=== PATIENT | female | born 1945 | race Caucasian/White ===

== ENCOUNTER → 2024-06-25 | Outpatient (CLI) | payer MEDICARE, SELFPAY ==
--- NOTE | 2024-06-25 13:23 | XR_ITS ---
Examination: AP lateral chest 2 views TECHNIQUE: Upright AP lateral chest 2 views Exam date and time: 01/24/2024 1340 hours INDICATIONS: Diagnosis atelectasis 2 weeks. FINDINGS: Mild prominence left ventricle Moderate hyperexpansion Severe osteopenia Chronic osteoporotic compressions T11 T5 Probable scarring in the lingular segment but clinical correlation advised IMPRESSION: Probable scarring lingular segment but clinical correlation advised, suggest follow-up chest imaging is clinically warranted
== END | disposition home or self-care (01) ==
LOC: CDIM 13:16
PROVIDERS: PCP Family Medicine; Referring Provider Nurse Practitioner Family; Visit Provider Nurse Practitioner Family
DX: R91.8 Other nonspecific abnormal finding of lung field (principal)
CPT/HCPCS: 71046

== ENCOUNTER 2025-05-31 14:48 | Inpatient (IN) | payer MEDICARE, SELFPAY ==
[2025-05-31] VITALS (10 sets, daily range): BP systolic 81–140; BP diastolic 50–100; PULSE 92–108; RESP 20–34; TEMP 36.8–38.6; O2SAT 91–97; BMI 14.9
--- NOTE | 2025-05-31 14:53 | XR_ITS ---
Examination: CT brain head without contrast. 2-D sagittal coronal reconstructions Date and time of exam: May 31, 2025, 1500 hours INDICATIONS: Stroke alert, onset lethargy generalized weakness today CTDI: vol (mGy): 48 DLP: (mGycm): 1033 Technique: Multiple CT axial sections of the brain have been obtained, 5 mm slice thickness. Contrast has not been administered. 2-D sagittal, coronal reconstructions have been obtained Low dose protocols were performed. One or more of the following dose reduction techniques were used; automated exposure control, adjustment of the mA and/or KV according to patient size, use of iterative reconstruction technique. Findings: No significant ventricular enlargement. Encephalomalacia left frontal lobe Intra-axial or extra-axial hemorrhage density is not seen. No mass effect or midline shift Basal cisterns are not remarkable. Fourth ventricle is midline. Cranial vault intact. Impression: Negative for acute hemorrhage, mass effect or midline shift
--- NOTE | 2025-05-31 14:53 | XR_ITS ---
EXAMINATION: AP chest single view TECHNIQUE: Portable AP sitting chest single view Date and time: May 31, 2025: 1524 hours INDICATIONS: Stroke protocol FINDINGS: Mild prominence left ventricle Breast density is prominent Prominent osteopenia IMPRESSION: Recommend follow-up lateral chest view to best exclude pneumonia in the lung tavarez
--- NOTE | 2025-05-31 14:53 | EKG_ITS ---
[facility] Test Date: 2025-05-31 Pat Name: YANELY MARTINEZ Department: Room: - Gender: Female [employer]: : 1945 Requested By: Belkis Cedeno Order Number: [id number] Reading MD: Belkis Cedeno Measurements Intervals [place] Rate: 105 P: 193 HI: 128 QRS: -69 QRSD: 138 T: 95 QT: 417 QTc: 552 Interpretive Statements SINUS TACHYCARDIA INTRAVENTRICULAR CONDUCTION DELAY [130+ ms QRS DURATION] LEFT VENTRICULAR HYPERTROPHY AND ST-T CHANGE [VOLTAGE CRITERIA PLUS ST/T ABNORMALITY] INFERIOR MYOCARDIAL INFARCTION , POSSIBLY ACUTE [40+ ms Q WAVE AND/OR ST/T ABNORMALITY IN II/aVF] POSSIBLE ANTEROSEPTAL MYOCARDIAL INFARCTION , OF INDETERMINATE AGE [30 ms Q WAVE IN V1-V4] ACUTE MS No previous ECG available for comparison /store/S0/[id number].pdf
--- NOTE | 2025-05-31 14:53 | XR_ITS ---
Examination: CTA carotids with intravenous contrast CTA brain, head with intravenous contrast. 2-D sagittal, coronal reconstructions. 3-D reconstructions. Exam date and time: May 31, 2025, 1303 hours INDICATIONS: Stroke alert, onset focal neurologic deficit lethargy today CTDI: vol (mGy) 32.8 DLP: (mGycm) 450 Technique: Multiple CTA axial brain, head carotid images post intravenous contrast injection 752 cc, Isovue-370. 2-D sagittal, coronal reconstructions. 3-D reconstructions, 3-D post processing including vascular maximum intensity projection images. Low dose protocols were performed. One or more of the following dose reduction techniques were used; automated exposure control, adjustment of the mA and/or KV according to patient size, use of iterative reconstruction technique. Findings: Soft foci of parenchymal disease in the lung apices No significant common carotid carotid bifurcation or internal carotid artery stenoses Atretic right vertebral artery which is grossly patent Intracranial vertebral arteries basilar artery posterior cerebral branches fill without occlusions Juxtasellar supraclinoid portions internal carotid arteries M1 segments middle cerebral arteries middle cerebral artery trifurcation vessels and anterior cerebral arteries fill with no large vessel occlusions IMPRESSION: No critical neck arterial stenoses No cerebral large vessel arterial occlusions or thrombus
[2025-05-31 15:15] LABS: Basophils # (Auto) 0.0 Thou/mm3 (0.0-0.2); Basophils % (Auto) 0 % (0-2.5); Eosinophils # (Auto) 0.0 Thou/mm3 (0.0-0.5); Eosinophils % (Auto) 0 % (0-10); Hematocrit 41.2 % (36.0-46.0); Hemoglobin 13.8 g/dL (12.0-16.0); Immature Granulocytes Auto 0.07 Thou/mm3 (0.00-0.00); Lymphocytes # (Auto) 0.6 Thou/mm3 (1.0-4.8); Lymphocytes % (Auto) 4 % (10-50); Mean Corpuscular HGB Conc 33.5 g/dl (31.0-37.0); Mean Corpuscular Hemoglobin 30.8 pg (25.0-35.0); Mean Corpuscular Volume 92 fL (80-100); Monocytes # (Auto) 1.7 Thou/mm3 (0.0-0.8); Monocytes % (Auto) 12 % (0-12); Neutrophils # (Auto) 12.2 Thou/mm3 (1.8-7.7); Neutrophils % (Auto) 83 % (37-80); Nucleated Red Blood Cell # 0.00 Thou/mm3 (0.00-0.00); Nucleated Red Blood Cell % 0 /100 WBC (0); Platelet Count 422 Thou/mm3 (140-440); RDW Standard Deviation 49.9 fL (36.4-46.3); Red Blood Count 4.48 Miln/mm3 (4.00-5.20); White Blood Count 14.6 Thou/mm3 (3.6-11.0)
[2025-05-31 15:24] LABS: Base Excess -3 (-3-3); HCO3 21 mEq/L (20-26); Inspired Oxygen, FIO2 21 %; O2 Saturation 96 % (91-98); PCO2 36 mmHg (32.0-48.0); PO2 80 mmHg (83-108); pH, Arterial 7.38 (7.35-7.45)
[2025-05-31 15:29] LABS: Allen Test Performed/OK; Puncture Site Right Radial
[2025-05-31 15:29] LABS: INR 1.0 (0.9-1.3); Partial Thromboplastin Time 25.1 Seconds (22.0-36.0); Prothrombin Time 10.4 Seconds (9.0-12.2)
[2025-05-31 15:34] LABS: B-Type Natriuretic Peptide 1860 pg/mL (0-100)
--- NOTE | 2025-05-31 15:34 | EDNOTE_ITS ---
<Statement entered by Belkis William MD - 05/31/25 17:57> As co-signing physician, I was present and available for consult prn. I concur with the plan and care as documented by the midlevel provider. Altered Mental Status RME/HPI General Chief Complaint: Altered Mental Status Stated Complaint: STROKE ALERT Time Seen by Provider: 05/31/25 14:53 Arrival date/time: 05/31/25 14:48 RME / HPI RME / HPI narrative: 79 year old female with history of CVA, TIA, seizures, atherosclerotic heart disease, hypertension, diabetes, hyperlipidemia, depression presents to the ED BIBA from [facility] for evaluation of altered mental status beginning after her shower at ~ 11AM today. Per medics, [place] staff reported the patient appeared to be at her baseline health, GCS of 13/14. State after the shower noted patient was much less responsive and lethargic. Prehospital BS 335. Related Data Allergies Allergy/AdvReac Type Severity Reaction Status Date / Time No Known Allergies Allergy Verified 05/31/25 16:38 Review of Systems Review of Systems ROS Unobtainable: unobtainable due to mental status Past Medical History Past Medical History NEUROLOGIC: Positive Cerebrovascular Accident and Dementia CARDIAC: Positive Congestive Heart Failure and Hypertension REPRODUCTIVE: Positive Breast Cancer (BILATERAL) ENDOCRINE: Positive Diabetes Mellitus Type 2 OTHER HISTORY: Positive Breast Cancer (BILATERAL) Surgical History SURGICAL: Positive Joint Replacement (RIGHT WRIST/HAND), of Shoulder Sx and Hip Sx Social History SMOKING STATUS: Unknown if ever smoked ED Exam Narrative Physical exam: GENERAL APPEARANCE: Patient arrived awake, not interactive, mouth open HEENT: Normocephalic, atraumatic; pupils equal, round, reactive to light; EOMI; mucous membranes pink, moist; oropharynx clear NECK: Supple LUNGS: CTABL; no wheezes, no rales, no rhonchi HEART: Regular rate, regular rhythm; normal S1, S2; no murmurs ABDOMEN: non distended; normal BS; soft, no tenderness, no guarding, no rebound; no masses, no organomegaly, no hernia EXTREMITIES: atraumatic; no edema NEUROLOGIC: Awake, not interactive PSYCHIATRIC: appropriate mood and affect SKIN: warm, dry, pale; no rashes Course Course Course Narrative: Stroke alert called overhead with 3 minute ETA. 1448: Patient evaluated in ED ambulance bay be myself and Teleneurologist Dr. Aguirre. Sent to CT. 1519: I spoke with teleneurologist Dr. Aguirre. States patient is not a TNK candidate. No acute stroke. 1547: Sepsis alert initiated. Temperature 101.4F 1735: I spoke with hospitalist team A for admission. Quality Measures Suspected type of Stroke: Non Acute Last known well (date): 05/31/25 Last known well (time): 11:00 Tenecteplase given: Reason(s) TPA not given: Stroke severity too mild (non-disabling) not given stroke and Current suspected stage: sepsis Possible source: pulmonary Blood cultures ordered: completed in ED Antibiotic ordered: Yes sepsis Orders Category Date Time Status Bedside Blood Glucose NOW Care 05/31/25 14:53 Active Open Claims Representative NOW Care 05/31/25 14:53 Active Continuous Pulse Oximetry NOW Care 05/31/25 14:53 Completed EKG (ED ONLY) *Do not use* NOW Care 05/31/25 14:53 Completed In and Out Catheter NEEDED Care 05/31/25 14:53 Active Insert IV NOW Care 05/31/25 14:53 Active NIH Stroke Scale now Care 05/31/25 14:53 Active NPO NOW Care 05/31/25 14:53 Active Nurse Swallow Screen x1 Care 05/31/25 14:53 Active Consult to Neurology / Tele-Neurology Routine Cons 05/31/25 14:[address] angio stroke protocol Stat Exams 05/31/25 14:[address] stroke protocol Stat Exams 05/31/25 14:53 Completed EKG (ED Only) Stat Exams 05/31/25 14:53 Draft XR chest 1V portable Stat Exams 05/31/25 14:53 Completed Alcohol, Blood Medical Stat Lab 05/31/25 15:00 Completed Arterial Blood Gas Stat Lab 05/31/25 15:20 Completed B-Type Natriuretic Peptide Stat Lab 05/31/25 15:00 Completed CBC Stat Lab 05/31/25 15:00 Completed Comprehensive Metabolic Panel Stat Lab 05/31/25 15:00 Completed Drug Screen,Urine Stat Lab 05/31/25 14:53 Ordered Magnesium Stat Lab 05/31/25 15:00 Completed Partial Thromboplastin Time Stat Lab 05/31/25 15:00 Completed Prothrombin Time with INR Stat Lab 05/31/25 15:00 Completed Troponin I Stat Lab 05/31/25 15:00 Completed Urinalysis, C/S if Indicated Stat Lab 05/31/25 14:53 Ordered Acetaminophen Ivpb [Ofirmev Inj] Med 05/31/25 15:50 Discontinued 1,000 mg in 100 ml IV X1 Aspirin Supp Med 05/31/25 15:25 Discontinued 300 mg HI X1 ONE Azithromycin Inj [Zithromax Inj] 500 mg Med 05/31/25 15:48 Discontinued Sodium Chloride 0.9% 250 ml [Ns] 250 ml IV X1 Sodium Chloride 0.9% 1000 ml [Ns] 1,000 ml Med 05/31/25 15:48 Discontinued IV 999 mls/hr cefTRIAXone/D5w 1gm IV premix [Rocephin/D5w 1gm IV Med 05/31/25 15:48 Discontinued premix] 1 gm in 50 ml IV X1 Oxygen Delivery NOW RT 05/31/25 14:53 Active Vital Signs Vital signs: Vital Signs Pulse Rate 106 H 05/31/25 15:22 Altered Mental Status MDM Narrative MDM Narrative:: Ana Hu am scribing for and in the presence of Dr. William. Patient data External records reviewed:: [facility] previous records, EMS form and Penitentiary records (I reviewed pmhx and medication list from [facility] ) Clinical information provided by:: EMS Social determinants that could affect healthcare access:: housing ([place] resident ) Patient has the following chronic illnesses:: CVA, TIA, seizures, atherosclerotic heart disease, hypertension, diabetes, hyperlipidemia, depression How is presenting disease/condition affected by chronic disease/condition?: exacerbated by Evaluation data The following diagnostics were reviewed and interpreted by me:: lab results, radiology exam(s) and EKG tracing(s) (EKG @ 15:20. Sinus tachycardia, rate 105, left bundle branch block, Q-waves in lead II III. ) Lab and/or radiology exams considered but not ordered:: None Interpretation Summary: Ordering Physician: Belkis William MD Date of Service: 05/31/25 Procedure(s): XR chest 1V portable Accession Number(s): [id number] cc: Yusuf Holden MD; Belkis William MD~ EXAMINATION: AP chest single view TECHNIQUE: Portable AP sitting chest single view Date and time: May 31, 2025: 1524 hours INDICATIONS: Stroke protocol FINDINGS: Mild prominence left ventricle Breast density is prominent Prominent osteopenia IMPRESSION: Recommend follow-up lateral chest view to best exclude pneumonia in the lung tavarez Dictated By: Yusuf Holden MD Signed By: <Electronically signed by Yusuf Holden MD in OV> 05/31/25 1538 Ordering Physician: Belkis William MD Date of Service: 05/31/25 Procedure(s): CT stroke protocol Accession Number(s): [id number] cc: Yusuf Holden MD; Belkis William MD~ Examination: CT brain head without contrast. 2-D sagittal coronal reconstructions Date and time of exam: May 31, 2025, 1500 hours INDICATIONS: Stroke alert, onset lethargy generalized weakness today CTDI: vol (mGy): 48 DLP: (mGycm): 1033 Technique: Multiple CT axial sections of the brain have been obtained, 5 mm slice thickness. Contrast has not been administered. 2-D sagittal, coronal reconstructions have been obtained Low dose protocols were performed. One or more of the following dose reduction techniques were used; automated exposure control, adjustment of the mA and/or KV according to patient size, use of iterative reconstruction technique. Findings: No significant ventricular enlargement. Encephalomalacia left frontal lobe Intra-axial or extra-axial hemorrhage density is not seen. No mass effect or midline shift Basal cisterns are not remarkable. Fourth ventricle is midline. Cranial vault intact. Impression: Negative for acute hemorrhage, mass effect or midline shift Dictated By: Yusuf Holden MD Signed By: <Electronically signed by Yusuf Holden MD in OV> 05/31/25 1501 Ordering Physician: Belkis William MD Date of Service: 05/31/25 Procedure(s): CT angio stroke protocol Accession Number(s): [id number] cc: Yusuf Holden MD; Belkis William MD~ Examination: CTA carotids with intravenous contrast CTA brain, head with intravenous contrast. 2-D sagittal, coronal reconstructions. 3-D reconstructions. Exam date and time: May 31, 2025, 1303 hours INDICATIONS: Stroke alert, onset focal neurologic deficit lethargy today CTDI: vol (mGy) 32.8 DLP: (mGycm) 450 Technique: Multiple CTA axial brain, head carotid images post intravenous contrast injection 752 cc, Isovue-370. 2-D sagittal, coronal reconstructions. 3-D reconstructions, 3-D post processing including vascular maximum intensity projection images. Low dose protocols were performed. One or more of the following dose reduction techniques were used; automated exposure control, adjustment of the mA and/or KV according to patient size, use of iterative reconstruction technique. Findings: Soft foci of parenchymal disease in the lung apices No significant common carotid carotid bifurcation or internal carotid artery stenoses Atretic right vertebral artery which is grossly patent Intracranial vertebral arteries basilar artery posterior cerebral branches fill without occlusions Juxtasellar supraclinoid portions internal carotid arteries M1 segments middle cerebral arteries middle cerebral artery trifurcation vessels and anterior cerebral arteries fill with no large vessel occlusions IMPRESSION: No critical neck arterial stenoses No cerebral large vessel arterial occlusions or thrombus Dictated By: Yusuf Holden MD Signed By: <Electronically signed by Yusuf Holden MD in OV> 05/31/25 1726 Medications / Prescriptions Medications or Prescriptions considered but not ordered:: None Medication administrations:: Medication Administration History Discontinued Medications Aspirin (Aspirin 300 Mg Supp) 300 mg HI X1 ONE Stop: 05/31/25 15:26 Last Admin: 05/31/25 17:01 Dose: 300 mg Documented By: AUBRIE Azithromycin 500 mg/ Sodium (Chloride) 250 mls @ 250 mls/hr IV X1 ONE Stop: 05/31/25 16:47 Ceftriaxone Sodium/Dextrose (Rocephin/D5w 1gm Iv Premix) 1 gm in 50 mls @ 100 mls/hr IV X1 ONE Stop: 05/31/25 16:17 Last Admin: 05/31/25 17:02 Dose: 100 mls/hr Documented By: AUBRIE Sodium Chloride (Ns) 1,000 mls @ 999 mls/hr IV .Q1H1M ONE Stop: 05/31/25 16:48 Last Admin: 05/31/25 17:01 Dose: 999 mls/hr Documented By: AUBRIE Acetaminophen (Ofirmev Inj) 1,000 mg in 100 mls @ 250 mls/hr IV X1 ONE Stop: 05/31/25 16:13 Last Infusion: 05/31/25 17:13 Dose: Infused Documented By: Admin: 05/31/25 16:58 Dose: 250 mls/hr Documented By: AUBRIE See above Consultations Consultation(s) initiated? (list below): Yes Consultation #1 (Physician, Specialty, Details): See course Diagnosis Most likely diagnosis given after review of the tests above:: Pneumonia Sepsis AMS Admission Indicated Admission indicated?: indicated Admission Request Was there a request for admission?: Yes Admission Attestation Admission request attestation: Discussed case with [] from Hospitalist service regarding admission. Discussed patients ED course, exam findings, labs, and radiology results. The Hospitalist [agrees,declines] to accept the patient for admission. Disposition Plan Disposition Plan: Admit Discharge Plan Plan Patient Disposition: Admit Acute Care w/in Hospital Prescriptions/Referrals Referrals: Veronique Maciel MD [Primary Care Provider] - In 1 week Problem List Clinical Impression: Pneumonia, Sepsis, Altered mental status Patient/Caregiver Discharge Instructions Print Language: Urdu Stand Alone Forms: Fiorella Award Info., Patient Portal Info Letter
--- NOTE | 2025-05-31 15:38 | ESCONSULT_ITS ---
Tele Neuro Consultation Consultation Date 05/31/25 Most Recent Vital Signs Last Vital Signs Pulse 106 H 05/31/25 15:24 Resp 25 H 05/31/25 15:24 BP 121/96 H 05/31/25 15:24 Pulse Ox 96 05/31/25 15:24 O2 Del Method Nasal Cannula 05/31/25 15:24 O2 Flow Rate 3 05/31/25 15:24 Laboratory-Coagulation Panel PT 10.4 Seconds (9.0-12.2) 05/31/25 15:00 INR 1.0 (0.9-1.3) 05/31/25 15:00 APTT 25.1 Seconds (22.0-36.0) 05/31/25 15:00 Consultation Narrative [facility] Tele[facility]urology Consult Services Patient Name:???Catracho Lafleur Date of :???1945 Identification Number:??? Date of Service:???05/31/2025 14:44:57 Diagnosis:?G93.41 - Encephalopathy Metabolic Impression: ?79 yo woman with h/o depression, chronic pain, dementia, prior stroke, here w/ lethargy. ?On exam, she is globally weak with very dry mucus membranes, elevated HR and soft blood pressure. ??stroke vs sepsis/metabolic cause ?No thrombolytic/not in the window. CTA head/neck pending. I will follow on the scan. Will be admitted for workup. Our recommendations are outlined below. Recommendations: ? Stroke/Telemetry Floor ? Neuro Checks (Q4) ? Bedside Swallow Eval ? DVT Prophylaxis ? IV Fluids, Normal Saline ? Head of Bed 30 Degrees ? Euglycemia and Avoid Hyperthermia (PRN Acetaminophen) ? Aspirin per rectum ? Antihypertensives PRN if Blood pressure is greater than 220/120 or there is a concern for End organ damage/contraindications for permissive HTN. If blood pressure is greater than 220/120 give labetalol PO or IV or Vasotec IV with a goal of 15% reduction in BP during the first 24 hours. ?MRI brain w/o Sign Out: ? Discussed with Emergency Department Provider Advanced Imaging: Advanced imaging has been ordered. Results pending. Metrics: Last Known Well: 05/31/2025 08:00:00 Dispatch Time: 05/31/2025 14:44:57 Arrival Time: 05/31/2025 14:48:00 Initial Response Time: 05/31/2025 14:47:46Symptoms: lethargy. Initial patient interaction: 05/31/2025 14:50:21 NIHSS Assessment Completed: 05/31/2025 15:15:16Patient is not a candidate for Thrombolytic. Thrombolytic Medical Decision: 05/31/2025 15:15:16Patient was not deemed candidate for Thrombolytic because of following reasons: LKW outside 4.[address] Head: I personally reviewed all the CT images that were available to me and it showed: no acute process Primary Provider Notified of Diagnostic Impression and Management Plan on: 05/31/2025 15:19:40 History of Present Illness:Patient is a 79 year old Female. Patient was brought by EMS for symptoms of lethargy. Catracho Lafleur is a 79 yo woman with h/o depression, chronic pain, dementia, prior stroke, here w/ lethargy. I called and s/w Faustina at [facility] where patient resides. The patient's nurse has left for the day but Faustina knows her and the situation. She notes patient was ok before breakfast, has been lethargic and less interactive since this am. At baseline, she is wheelchair bound, can feed herself, is oriented to self and place, is able to communicate well. I was not able to reach family/no answer. Past Medical History: ?Stroke ?There is no history of Hypertension Other PMH:? depression, chronic pain Medications: No Anticoagulant use? No Antiplatelet use Reviewed EMR for current medications Allergies:? Reviewed Social History: Smoking: No Alcohol Use: No Family History: There is no family history of premature cerebrovascular disease pertinent to this consultation ROS : 14 Points Review of Systems was performed and was negative except mentioned in HPI. Past Surgical History: There Is No Surgical History Contributory To Today?s Visit Examination: BP(108/74),?Pulse(102),?Blood Glucose(335) 1A: Level of Consciousness - Arouses to minor stimulation?+ 1 1B: Ask Month and Age - Could Not Answer Either Question Correctly?+ 2 1C: Blink Eyes & Squeeze Hands - Performs 0 Tasks?+ 2 2: Test Horizontal Extraocular Movements - Normal?+ 0 3: Test Visual Alvarez - No Visual Loss?+ 0 4: Test Facial Palsy (Use Grimace if Obtunded) - Normal symmetry?+ 0 5A: Test Left Arm Motor Drift - No Effort Against Wingate?+ 3 5B: Test Right Arm Motor Drift - No Effort Against Wingate?+ 3 6A: Test Left Leg Motor Drift - No Effort Against Wingate?+ 3 6B: Test Right Leg Motor Drift - No Effort Against Wingate?+ 3 7: Test Limb Ataxia (FNF/Heel-George) - Does Not Understand?+ 0 8: Test Sensation - Normal; No sensory loss?+ 0 9: Test Language/Aphasia - Mute/Global Aphasia: No Usable Speech/Auditory Comprehension?+ 3 10: Test Dysarthria - Mute/Anarthric?+ 2 11: Test Extinction/Inattention - No abnormality?+ 0 NIHSS Score:?22 NIHSS Free Text :?very dry mucus membranes ?can nod but cannot speak or follow commands Pre-Morbid Modified Chester Scale: 4 Points = Moderately severe disability; unable to walk and attend to bodily needs without assistance Spoke with :?Stewart This consult was conducted in real time using interactive audio and video technology. Patient was informed of the technology being used for this visit and agreed to proceed. Patient located in hospital and provider located at home/office setting. Patient is being evaluated for possible acute neurologic impairment and high probability of imminent or life-threatening deterioration. I spent total of 40 minutes providing care to this patient, including time for face to face visit via telemedicine, review of medical records, imaging studies and discussion of findings with providers, the patient and/or family. Dr Delaney Aguirre [facility] For Inpatient follow-up with [facility] physician please call [facility] at . As we are not an outpatient service for any post hospital discharge needs please contact the hospital for assistance. If you have any questions for the [facility] physicians or need to re consult for clinical or diagnostic changes please contact us via [facility] at . Non-radiologist review of imaging performed to assist with emergent clinical decision-making. Remote physician workstations do not possess the same resolution, calibration, or diagnostic capabilities as hospital-based radiology reading stations, and formal radiologist read is necessary. Signature :?Delaney Aguirre
[2025-05-31 15:45] LABS: Alanine Aminotransferase 50 U/L (10-49); Albumin, Serum 4.7 gm/dL (3.4-4.8); Albumin/Globulin Ratio 1.9 (1.2-2.2); Alcohol, Blood Medical < 3.0 mg/dL (0-10.0); Alkaline Phosphatase 153 U/L (46-116); Anion Gap 18 (7-16); Aspartate Amino Transferase 26 U/L (0-34); BUN/Creatinine Ratio 30 Ratio (12-20); Bilirubin,Total 0.9 mg/dL (0.3-1.2); Blood Urea Nitrogen 30 mg/dL (9-23); Calcium 11.5 mg/dL (8.3-10.6); Calcium (Corrected) 11.5 mg/dL (8.5-10.1); Carbon Dioxide 20.3 mMol/L (20.0-31.0); Chloride 107 mMol/L (98-107); Creatinine (Component) 1.0 mg/dL (0.6-1.3); Globulin 2.5 gm/dL (2.3-3.5); Glucose 337 mg/dL (74-106); Magnesium 1.7 mg/dL (1.6-2.6); Osmolality,Calculated 307 (275-295); Potassium 3.9 mMol/L (3.4-5.1); Sodium 145 mMol/L (136-145); Total Protein 7.2 gm/dL (5.7-8.2); eGFR 58 See Note
[2025-05-31 15:47] LABS: Troponin I 0.053 ng/mL (0.0-0.045)
[2025-05-31] MEDS: ACETAMINOPHEN IVPB 1,000 MG/100 ML VIAL 250 MG IV (16:58)
[2025-05-31] MEDS: SODIUM CHLORIDE 0.9% 1000 ML 1,000 ML 999 ML IV (17:01)
[2025-05-31] MEDS: ASPIRIN 300 MG SUPP PR (17:01)
[2025-05-31] MEDS: cefTRIAXone/D5w 1gm IV premix 1 GM/50 ML BAG IV (17:02)
[2025-05-31] MEDS: AZITHROMYCIN INJ 500 MG in SODIUM CHLORIDE 0.9% 250 ML 250 ML 250 MG IV (18:01)
--- NOTE | 2025-05-31 18:32 | ECHO_ITS ---
Patient Info Name: Catracho Lafleur Age: 79 years : 1945 Gender: Female Ht: 175 cm Wt: 46 kg BSA: 1.47 m2 BP: 102 / 59 mmHg HR: 90 bpm Heart Rhythm: Atrial Flutter Exam Date: 06/01/2025 6:59 AM Admit Date: 05/31/2025 Site: [facility] Room Number: [id number] Patient Status: I Technical Quality: Poor Exam Type: CA echo doppler complete Reason for Poor Study: poor patient cooperation Alarm Service Technician: Magaly Nieto Ordering Physician: Sy Arizmendi Study Info Indications elevated BNP, troponin, and c/f CHF - Primary Location: S2NX Left Ventricular Outflow Tract Name Value Normal LVOT 2D LVOT Diameter 1.8 cm LVOT Doppler LVOT Peak Velocity 117 cm/s LVOT Mean Gradient 3 mmHg LVOT VTI 21 cm LVOT VTI/AV VTI Ratio 0.9 LVOT Stroke Volume 53 ml Pulmonic Valve Name Value Normal PV Doppler PV Peak Velocity 102 cm/s Mitral Valve Name Value Normal MV Doppler MV Decel [place] 924 cm/s2 MV PHT 35 ms MV Area (PHT) 6.3 cm2 4.0-5.0 MV Diastolic Function MV E Peak Velocity 111 cm/s Tricuspid Valve Name Value Normal TV Regurgitation Doppler TR Peak Velocity 279 cm/s Estimated PAP/RSVP RA Pressure 8 mmHg <=5 PA Systolic Pressure 39 mmHg <36 RV Systolic Pressure 39 mmHg <36 Aortic Valve Name Value Normal AV 2D/MM AV Cusp Sep (MM) 0.7 cm AV Doppler AV Peak Velocity 130 cm/s AV Mean Gradient 4 mmHg AV VTI 24 cm AV Area (Cont Eq VTI) 2.2 cm2 >=3.0 AV Area (Cont Eq Alan) 2.3 cm2 AV DI (Alan) 0.90 AV Regurgitation 2D LVOT Area 2.5 cm2 Ventricles Name Value Normal LV Dimensions 2D/MM IVS Diastolic Thickness (2D) 0.6 cm 0.6-0.9 LVID Diastole (2D) 3.7 cm 3.8-5.2 LVIW Diastolic Thickness (2D) 0.7 cm 0.6-0.9 LVID Systole (2D) 2.3 cm 2.2-3.5 LVOT Diameter 1.8 cm LV Mass (2D Cubed) 62.46 g 67.00-162.00 LV Mass Index (2D Cubed) 42 g/m2 43-95 Relative Wall Thickness (2D) 0.38 <=0.42 IVS/LVIW Diastolic Thickness (2D) 0.86 0.00-1.50 LV Fractional Shortening/Ejection Fraction 2D/MM LV Fractional Shortening (2D) 38 % 27-45 LV EF (2D Teichholz) 69 % Atria Name Value Normal LA Dimensions LA Volume (4C A-L) 20 ml Wall Motion Scoring Left Ventricle Left ventricular chamber dimension is normal. Left ventricular systolic function is moderately reduced with visually estimated ejection fraction of 40-45%. There is normal geometry noted in the left ventricle. The inferoseptal wall is hypokinetic. The inferior wall, anterior wall, anterolateral wall, inferolateral wall, basal anteroseptal, and mid anteroseptal are not scored. Left ventricular segmental wall motion is abnormal. There is grade II diastolic dysfunction in the left ventricle. Right Ventricle Right ventricular chamber dimension is normal. Right ventricular systolic function is normal. Left Atrium Left atrial chamber dimension is normal. Right Atrium Right atrial chamber dimension is normal. Aortic Valve The aortic valve is trileaflet. There is mild aortic valve sclerosis. There is no aortic valve stenosis with a peak velocity of 130 cm/s, mean gradient of 4 mmHg, and aortic valve area of 2.2 cm2. There is no aortic valve regurgitation. Pulmonic Valve The pulmonic valve is normal. There is no pulmonic valve stenosis. There is mild pulmonic regurgitation. Mitral Valve The mitral valve has thickened leaflets. There is no mitral valve stenosis. There is mild mitral valve regurgitation. Tricuspid Valve The tricuspid valve leaflets are normal. There is no tricuspid valve stenosis. There is mild tricuspid valve regurgitation. Pulmonary hypertension, estimated pulmonary arterial systolic pressure is 39 mmHg and systemic blood pressure of 102 mmHg in systole. Pericardium/Pleural The pericardium appears normal. There is trivial pericardial effusion with no tamponade. There is trivial pericardial effusion. Pleural effusion visualized. Inferior Vena Cava Normal inferior vena cava with >50% collapse upon inspiration consistent with normal right atrial pressure, 8 mmHg. Aorta The aortic measurements are indexed to age and body surface area. The aortic root at the sinus of Valsalva is not well visualized. The prox ascending aorta is not well visualized. Summary 1. Left ventricle size is normal and systolic function is mildly reduced. Estimated ejection fraction is 40-45%. There is grade II diastolic dysfunction. 2. Right ventricle chamber size is normal and systolic function is normal. Estimated RVSP is 39 mmHg. 3. There is mild aortic valve sclerosis with no stenosis and no regurgitation. 4. There is mild mitral valve regurgitation. 5. The mitral valve has thickened leaflets. 6. There is mild tricuspid valve regurgitation. 7. mild pulmonic valve regurgitation. 8. Normal IVC with estimated RA pressure 8 mmHg. 9. There is trivial pericardial effusion with no tamponade. Report Signatures Finalized by Landon Lim on 06/01/2025 04:31 PM
--- NOTE | 2025-05-31 19:18 | ESHP_ITS ---
<Statement entered by Ambrocio Ramsay MD - 06/14/25 15:18> I reviewed above note and agree with findings and plans. I have also personally examined the patient with medicine team and went over assessment and plan with medical team including international bank manager and resident physician. <Statement entered by Batsheva Holt MD - 06/01/25 07:05> Patient was seen and examined by me personally. I have directly supervised and reviewed documentation by the team resident and agree with its findings with any exceptions or additional findings as below. Plan of care was discussed with the attending, Dr. Ramsay. Batsheva Holt, PGY-3 Documentation for date of: 05/31/25 HPI History of Present Illness History of present illness: Patient is a 79-year-old F with a PMH of prior CVA, dementia, T2DM, hypertension, recurrent falls, chronic pain, and depression who presented on 05/31/25 after being BIBA for stroke-like symptoms, altered mentation, and general lethargy. According to [id number], who was present at the time of interview, patient was noted to be very sleepy yesterday when [id number] and her (patient's son) came to visit her which is not usual. Today, there were concerns of patient exhibiting signs of a stroke (symptoms not specified) at [facility] (her snf) and patient's was brought by ambulance to [facility] around 2 or 3 PM. Patient does not use home O2. [id number] was not able to supply much more information on patient's current presentation and patient herself seemed too lethargic and altered to act as a reliable historian. PMH: As above PSH: Bilateral hip replacement, recent history of left shoulder fracture and impact trauma to trapezium and scaphoid bones of left hand (but without surgical intervention) Medications: Pending medication reconciliation Allergies: NKDA FH: Dementia in both parents SH: Smoked for years but stopped a year ago, average packs per day unknown In the ED, vitals showed: BP 121/96 HR 106 RR 25 Temp 101.4 SpO2 96% on 2 L NC CBC showed WBC 14.6 but was otherwise WNL. Coagulation panel WNL. ABG showed - (pH 7.38, pCO2 36, PaO2 80, HCO3 21). CMP showed anion gap 18, BUN 30, creatinine 1.0 (baseline unknown), eGFR 58, glucose 337, calculated osmolality 307, corrected calcium 11.5, magnesium 1.7, troponin 0.053 (later up-trended to 0.093 after about 4 hours), BNP 1860. UA showed turbid orange urine of pH 5.0, specific gravity 1.044, 2+ protein, 3+ glucose, 1+ ketones, 3+ blood, negative nitrite, positive leukocyte esterase, urine RBC 272, urine WBC 14, presence of amorphous crystals, and 4+ bacteria. UDS was grossly negative. Imagin/10 CXR showed mild prominence of the left ventricle, prominent breast density, and prominent osteopenia. 05/[address] showed encephalomalacia of the left frontal lobe but was negative for acute hemorrhage, mass effect or midline shift. 05/31 head/neck CTA showed no critical neck arterial stenoses, cerebral large vessel arterial occlusions, or thrombus. 05/31 EKG (machine read) showed sinus tachycardia 105 with intraventricular conduction delay, left ventricular hypertrophy and ST-T change, inferior myocardial infarction (possibly acute), possible anteroseptal myocardial infarction of indeterminate age, and prolonged QTc 552. In the ED, patient was given Tylenol IV, aspirin AK, 2 L NS fluid IV, ceftriaxone IV, and azithromycin IV. Patient was admitted for the work-up and management of stroke-like symptoms, altered mental status, and suspected aspiration pneumonia. Teleneurology was consulted and is closely following the case. Review of Systems Review of Systems Systems Reviewed: All systems reviewed, normal except as documented Exam Vital Signs Temp Pulse Resp BP Pulse Ox O2 Del Method O2 Flow Rate 98.2 F 92 25 H 81/60 L 95 Nasal Cannula 2 05/31/25 18:17 05/31/25 18:17 05/31/25 18:17 05/31/25 18:17 05/31/25 18:17 05/31/25 18:17 05/31/25 18:17 Narrative Exam General: A/O x3 (but increased speech latency), lethargic-appearing, somewhat in distress Skin: 2 black lesions noted on left-side of face. Erythematous-appearing lesions scattered about face. Skin intact. Head: Normocephalic, atraumatic. Eyes: PERRL, EOM unable to be assessed due to failure to follow instructions. Anicteric, vision grossly intact. Ears: No ear pain, no ear discharge. Nose: No nasal discharge. Mouth/Throat: Charles-appearing oropharyngeal exudate. Poor dentition that appears somewhat stained by orange/red pigmentation. Oral mucosa dry. Cardiovascular: Tachycardic rate and normal rhythm, no murmur, no JVD or carotid bruits. +S1/S2. Respiratory: Diffuse rhonchi auscultated on anterior lung tavarez, labored respirations, no crackles, no wheezing. No accessory muscle use. Gastrointestinal: Soft, nontender, non-distended, no palpable masses. No guarding or rebound tenderness. Peristalsis present. Extremities: Symmetrical, no significant deformities. No edema, no cyanosis, no clubbing. 2+ radial pulse bilaterally, 2+ posterior tibial pulse bilaterally. Neuro: 4/5 strength of RUE, 0/5 strength of LUE. 1/5 strength of RLE, 0/5 strength of LLE. No facial droop appreciated. Other portions of exam unable to be assessed due to patient only being cooperative sometimes. Results: Labs 05/31/25 15:00 05/31/25 15:00 Labs: Short CBC 05/31/25 Range/Units 15:00 WBC 14.6 H (3.6-11.0) Thou/mm3 Hgb 13.8 (12.0-16.0) g/dL Hct 41.2 (36.0-46.0) % Plt Count 422 (140-440) Thou/mm3 BMP 05/31/25 15:00 Sodium 145 Potassium 3.9 Chloride 107 Carbon Dioxide 20.3 BUN 30 H Creatinine 1.0 Glucose 337 H Calcium 11.5 H Cardiac Enzymes 05/31/25 Range/Units 15:00 Troponin I 0.053 H* (0.0-0.045) ng/mL Liver Function 05/31/25 Range/Units 15:00 Total Bilirubin 0.9 (0.3-1.2) mg/dL AST 26 (0-34) U/L ALT 50 H (10-49) U/L Alkaline Phosphatase 153 H (46-116) U/L Albumin 4.7 (3.4-4.8) gm/dL ABG Interpretation ABG results: 05/31/25 15:20 ABG pH 7.38 ABG pCO2 36 ABG pO2 80 L ABG HCO3 21 ABG O2 Saturation 96 ABG Base Excess -3 Quality Measures Quality Measures stroke Suspected type of Stroke: Non Acute Last known well (date): 05/31/25 Last known well (time): 11:00 Tenecteplase given: Reason(s) Tenecteplase not given: Stroke severity too mild (non-disabling) not given Rehab services: PT evaluation ordered and Speech Language Pathology eval ordered VTE Prophylaxis: pharmaceutical Antithrombotic by day 2:: not indicated (describe) Statin ordered: not ordered Anticoagulation ordered for A-fib or flutter (current or hx): not indicated and sepsis Current suspected stage: ruled out Possible source: pulmonary Blood cultures ordered: completed in ED Antibiotic ordered: Yes Advance care planning discussed with:: patient and other ([id number]) Medications Home Medications and Allergies Home Medications ?Medication ?Instructions ?Recorded ?Confirmed ?Type bupropion HCl 100 mg tablet,12 hr 100 mg PO QDAY 05/3105/31/25 History sustained-release clopidogrel 75 mg tablet 75 mg PO QDAY 05/31/2505/31 History fluoxetine 40 mg capsule 40 mg PO QDAY 05/31/2505/31 History latanoprost 0.005 % eye drops 1 drp ophthalmic (eye) Q DAY 05/31/25 05/31/25 History levetiracetam 500 mg tablet 500 mg PO Q12H 05/31/25 History lisinopril 5 mg tablet 5 mg PO QDAY 05/31/25 History metformin 1,000 mg tablet 1,000 mg PO BID 05/31/2505/15 History mirtazapine 7.5 mg tablet 7.5 mg PO QDAY 05/31/2505/22 History ondansetron 4 mg disintegrating 4 mg PO Q6H PRN nausea and vomiting 05/31/25 05/31/25 History tablet pravastatin 40 mg tablet 40 mg PO QDAY 05/31/2505/31 History timolol maleate 0.5 % eye drops 1 drp ophthalmic (eye) Q12H 05/31/25 05/31/25 History tramadol 75 mg tablet 75 mg PO Q6H PRN pain 05/31/25 History Allergies Allergy/AdvReac Type Severity Reaction Status Date / Time No Known Allergies Allergy Verified 05/31/25 16:38 Visit Medications Dextrose (Dextrose 50%-Water Inj 50 Ml Syringe) 25 ml IV Q15MIN PRN PRN Reason: BG 50-70 responsive npo pt Stop: 06/30/25 18:34 Dextrose (Dextrose 50%-Water Inj 50 Ml Syringe) 50 ml IV Q15MIN PRN PRN Reason: BG <50 OR BG <70 & pt unresponsive Stop: 06/30/25 18:34 Glucagon (Glucagon Inj 1 Mg Vial) 1 mg IM Q15MIN PRN PRN Reason: BG <70, and no IV access Heparin Sodium (Porcine) (Heparin Sod Inj 5000 Unit/Ml Vial) 5,000 unit SC Q8HR DIONTE Stop: 06/14/25 21:59 Sodium Chloride (Ns) 1,000 mls @ 100 mls/hr IV .Q10H DIONTE Stop: 06/01/25 04:29 Azithromycin 500 mg/ Sodium (Chloride) 250 mls @ 250 mls/hr IV QDAY@2100 DIONTE Stop: 06/07/25 20:59 Ceftriaxone Sodium/Dextrose (Rocephin/D5w 1gm Iv Premix) 1 gm in 50 mls @ 100 mls/hr IV QDAY DIONTE Stop: 06/07/25 08:59 Insulin Human Lispro (Insulin Lispro (Admelog) 1 Unit/0.01 Ml Unit) 0 unit SC Q6HR DIONTE; Protocol Stop: 07/01/25 00:00 Discontinued Medications Aspirin (Aspirin 300 Mg Supp) 300 mg AK X1 ONE Stop: 05/31/25 15:26 Last Admin: 05/31/25 17:01 Dose: 300 mg Azithromycin 500 mg/ Sodium (Chloride) 250 mls @ 250 mls/hr IV X1 ONE Stop: 05/31/25 16:47 Last Admin: 05/31/25 18:01 Dose: 250 mls/hr Ceftriaxone Sodium/Dextrose (Rocephin/D5w 1gm Iv Premix) 1 gm in 50 mls @ 100 mls/hr IV X1 ONE Stop: 05/31/25 16:17 Last Infusion: 05/31/25 17:35 Dose: Infused Sodium Chloride (Ns) 1,000 mls @ 999 mls/hr IV .Q1H1M ONE Stop: 05/31/25 16:48 Last Infusion: 05/31/25 18:05 Dose: Infused Acetaminophen (Ofirmev Inj) 1,000 mg in 100 mls @ 250 mls/hr IV X1 ONE Stop: 05/31/25 16:13 Last Infusion: 05/31/25 17:13 Dose: Infused Insulin Human Lispro (Insulin Lispro (Admelog) 1 Unit/0.01 Ml Unit) 0 unit SC [facility]; Protocol Stop: 07/01/25 07:29 Assessment & Plan Plan Patient is a 79-year-old F with a PMH of prior CVA, dementia, T2DM, hypertension, recurrent falls, chronic pain, and depression who presented on 05/31/25 after being BIBA for stroke-like symptoms, altered mentation, and general lethargy. Patient was admitted for the work-up and management of stroke- like symptoms, altered mental status, and suspected aspiration pneumonia. #Stroke-like symptoms #Acute encephalopathy Patient was BIBA on 05/31 due to concern for stroke-like symptoms, altered mentation, and general lethargy 05/[address] showed encephalomalacia of the left frontal lobe but was negative for acute hemorrhage, mass effect or midline shift. 05/31 head/neck CTA showed no critical neck arterial stenoses, cerebral large vessel arterial occlusions, or thrombus. Initial Tele-Neurology assessment of NIHSS 22 and Pre-Morbid Modified Jack Scale 4 TNK not administered as LKWT outside of time frame DDx: 1. CVA/TIA (left-sided weakness of UE and LE) 2. metabolic (calcium 11.5, blood glucose 337) 3. UTI/sepsis Dx: -05/31 brain MRI w/o contrast ordered, showed ___ -TSH ordered, showed ___ Rx: -IV NS fluid @ 100 cc/hr (for a total of 2 L) -Aspirin 300 mg AK x 1 -Heparin 5U SC q8HR for DVT prophylaxis -Bedside swallow evaluation -Neuro check q4HR -Head of bed 30 degrees -Euglycemia and avoid hyperthermia (acetaminophen prn) -Antihypertensives prn if blood pressure is greater than 220/120 or there is a concern for end organ damage/contraindications for permissive HTN. If blood pressure is greater than 220/120 give labetalol PO or IV or Vasotec IV with a goal of 15% reduction in BP during the first 24 hours. #Bilateral pneumonia, concerning for aspiration #Leukocytosis 05/31 CXR showed prominent bilateral pneumonia 05/31 admission WBC 14.6 Dx: -MRSA nasal screen ordered, showed ___ -05/31 BCx ordered, showed ___ Rx: -Rocephin 1 g IV qD [05/31--] -Azithromycin 500 mg IV qD [05/31--] -Chest physiotherapy -Aspiration precautions #UTI 05/31 UA showed turbid orange urine of pH 5.0, specific gravity 1.044, 2+ protein, 3+ glucose, 1+ ketones, 3+ blood, negative nitrite, positive leukocyte esterase, urine RBC 272, urine WBC 14, presence of amorphous crystals, and 4+ bacteria. Patient denied any dysuria or sensation of burning during micturition Dx: -05/31 UCx ordered, showed ___ Rx: -Antibiotics as above #Acute exacerbation of HFrEF 05/31 admission BNP of 1860 05/31 CXR showed mild prominence of left ventricle Dx: -05/31 echocardiogram ordered, showed ___ Rx: -Continuous pulse oximetry -Supplemental oxygen as needed -Strict I&O + daily weights -Holding off on diuresis as patient appears quite dehydrated #NSTEMI, Type I vs. Type II 05/31 admission troponin 0.053->0.093 Likely Type II demand ischemia i/s/o intravascular depletion from dehydration Rx: -Trend troponin q6HR #HAGMA 05/31 admission anion gap 18 Dx: -05/31 lactic acid ordered, showed ___ #Hypercalcemia 05/31 admission calcium 11.5 Likely 2/2 severe dehydration, but patient was also noted upon admission to have BNP of 1860 Rx: -IV NS fluid @ 100 cc/hr (for a total of 2 L) #T2DM 05/31 admission blood glucose 337 Dx: -HgbA1c ordered, showed ___ Rx: -Insulin sliding scale -Monitor blood glucose q6HR Hospital Management: Disposition: Admitted to [facility] for the work-up and management of stroke-like symptoms, altered mental status, and suspected aspiration pneumonia Diet: NPO GI Prophylaxis: Not Indicated Bowel Prophylaxis: None DVT Prophylaxis: Heparin 5U SC q8HR CODE STATUS: Full Code I have examined the patient and conferred with my attending, Dr. Ramsay, and my senior resident, Dr. Yanet, regarding them. Sy Arizmendi, DO PGY-1 Internal Medicine
[2025-05-31 19:52] LABS: Collection Type, Urine Catheter; Squamous Epithelial Cell,Urine 0 /hpf (0-5)
[2025-05-31 20:04] LABS: Amorphous Crystals,Urine Present (Absent); Bacteria,Urine 4+; Bilirubin,Urine Negative (Negative); Blood,Urine 3+ (Negative); Clarity,Urine Turbid (Clear/Hazy); Color,Urine Orange (Lt Yel-Yel); Culture Indicated,Urine Yes; Glucose, Urine 3+ (Negative); Ketones,Urine 1+ (Negative); Leukocyte Esterase,Urine Positive (Negative); Nitrite,Urine Negative (Negative); PH,Urine 5.0 (5.0-7.0); Protein,Urine 2+ (Neg - Trace); RBC,Urine 272 /hpf (0-3); Specific Gravity,Urine 1.044 (1.001-1.035); Urobilinogen,Urine 2.0 mg/dL (0.0-1.0); WBC,Urine 14 /hpf (0-5)
[2025-05-31] MEDS: SODIUM CHLORIDE 0.9% 1000 ML 1,000 ML 100 ML IV (20:06)
[2025-05-31 20:12] LABS: Amphetamine/Methamp Scrn,U Negative (Negative); Barbiturate Screen,Urine Negative (Negative); Benzodiazepines Screen,Urine Negative (Negative); Benzoylecgonine Screen, Ur Negative (Negative); Fentanyl Screen,Urine Negative (Negative); Opiate Screen,Urine Negative (Negative); THC Screen,Urine Negative (Negative)
--- NOTE | 2025-05-31 20:15 | PC.NURSE ---
NIHSS WAS NOT ABLE TO BE COMPLETED DUE TO PATIENT CONDITION. PT UNDERSTAND FEW COMMANDS SUCH LIFTING EXTREMITIES, BUT DOES NOT FOLLOW COMMANDS SUCH SMILING AND LIFTING EYEBROWS. PT HAS SLOW AND DIFFICULT SPEECH AND WAS NOT ABLE TO TELL ME ANY CHARACTERS IN PICTURE OR STATEMENTS/WORDS. PT WAS NOT UNDERSTANDING THE LIMB ATAXIA DIRECTIONS OR VISUAL FIELD DIRECTION.
[2025-05-31 20:19] LABS: Troponin I 0.093 ng/mL (0.0-0.045)
--- NOTE | 2025-05-31 20:41 | PC.NURSE ---
CRITICAL TROP WAS REPORTED TO DR. JONES AND CHARTED IN WORKLIST. THIS RN ALSO TOLD MILI MANCERA
[2025-05-31] MEDS: HEPARIN SOD INJ 5000 UNIT/ML VIAL SC (21:54)
[2025-05-31 23:17] LABS: Lactate (Lactic Acid) 2.0 mMol/L (0.4-2.0)
[2025-05-31] MEDS: INSULIN LISPRO (AdmeLOG) 1 UNIT/0.01 ML UNIT SC (23:52)
[2025-05-31] MEDS: Magnesium Sulfate 4 GM Ivpb 4 GM/50 ML BAG IV (23:53)
[2025-06-01] VITALS (8 sets, daily range): BP systolic 102–152; BP diastolic 58–87; PULSE 82–96; RESP 16–26; TEMP 35.9–37.1; O2SAT 92–98; BMI 14.8; BMI 11.0; BMI 12.0
[2025-06-01 00:37] LABS: Troponin I 0.181 ng/mL (0.0-0.045)
--- NOTE | 2025-06-01 00:39 | PC.NURSE ---
Dr. Robertson notified of critical trop trending up now at .181.
[2025-06-01] MEDS: INSULIN LISPRO (AdmeLOG) 1 UNIT/0.01 ML UNIT SC ×3 (05:39→16:45)
[2025-06-01] MEDS: HEPARIN SOD INJ 5000 UNIT/ML VIAL SC ×3 (05:39→21:34)
[2025-06-01 06:38] LABS: Basophils # (Auto) 0.0 Thou/mm3 (0.0-0.2); Basophils % (Auto) 0 % (0-2.5); Eosinophils # (Auto) 0.0 Thou/mm3 (0.0-0.5); Eosinophils % (Auto) 0 % (0-10); Hematocrit 36.4 % (36.0-46.0); Hemoglobin 11.8 g/dL (12.0-16.0); Immature Granulocytes Auto 0.06 Thou/mm3 (0.00-0.00); Lymphocytes # (Auto) 0.8 Thou/mm3 (1.0-4.8); Lymphocytes % (Auto) 6 % (10-50); Mean Corpuscular HGB Conc 32.4 g/dl (31.0-37.0); Mean Corpuscular Hemoglobin 30.6 pg (25.0-35.0); Mean Corpuscular Volume 95 fL (80-100); Monocytes # (Auto) 1.5 Thou/mm3 (0.0-0.8); Monocytes % (Auto) 12 % (0-12); Neutrophils # (Auto) 9.9 Thou/mm3 (1.8-7.7); Neutrophils % (Auto) 81 % (37-80); Nucleated Red Blood Cell # 0.00 Thou/mm3 (0.00-0.00); Nucleated Red Blood Cell % 0 /100 WBC (0); Platelet Count 383 Thou/mm3 (140-440); RDW Standard Deviation 51.8 fL (36.4-46.3); Red Blood Count 3.85 Miln/mm3 (4.00-5.20); White Blood Count 12.3 Thou/mm3 (3.6-11.0)
[2025-06-01 07:01] LABS: Alanine Aminotransferase 36 U/L (10-49); Albumin, Serum 3.8 gm/dL (3.4-4.8); Albumin/Globulin Ratio 1.9 (1.2-2.2); Alkaline Phosphatase 122 U/L (46-116); Anion Gap 12 (7-16); Aspartate Amino Transferase 21 U/L (0-34); BUN/Creatinine Ratio 27 Ratio (12-20); Bilirubin,Total 0.3 mg/dL (0.3-1.2); Blood Urea Nitrogen 41 mg/dL (9-23); Calcium 10.2 mg/dL (8.3-10.6); Calcium (Corrected) 10.4 mg/dL (8.5-10.1); Carbon Dioxide 24.2 mMol/L (20.0-31.0); Cardiac Risk Estimate 7.2 RATIO (3.7-5.6); Chloride 113 mMol/L (98-107); Cholesterol 129 mg/dL (132-200); Creatinine (Component) 1.5 mg/dL (0.6-1.3); Estimated Creatinine Clearance 22.3 mL/min (>60); Globulin 2.0 gm/dL (2.3-3.5); Glucose 222 mg/dL (74-106); Glucose Estimated Average 140 mg/dL (80-131); HDL Cholesterol 18 mg/dL (40-60); Hemoglobin A1C 6.5 % Hgb (4.8-6.0); LDL Cholesterol,Calculated 65 mg/dL (0-130); Magnesium 3.2 mg/dL (1.6-2.6); Osmolality,Calculated 313 (275-295); Phosphorous 3.9 mg/dL (2.4-5.1); Potassium 3.2 mMol/L (3.4-5.1); Sodium 149 mMol/L (136-145); Thyroid Stimulating Hormone 0.78 uIU/mL (0.55-4.78); Total Protein 5.8 gm/dL (5.7-8.2); Triglycerides 231 mg/dL (30-150); eGFR 35 See Note
[2025-06-01 07:03] LABS: Troponin I 0.297 ng/mL (0.0-0.045)
[2025-06-01] MEDS: cefTRIAXone/D5w 1gm IV premix 1 GM/50 ML BAG IV (08:23)
[2025-06-01] MEDS: POTASSIUM CHL 10 mEq IVPB 10 MEQ/100 ML BAG 100 MEQ IV ×4 (08:23→13:22)
[2025-06-01] MEDS: levETIRAcetam INJ 100 MG/ML VIAL 5ML 500 MG IVP ×2 (08:24→20:34)
[2025-06-01] MEDS: RINGERS LACTATED 1000 ML 1,000 ML 50 ML IV (08:24)
[2025-06-01] MEDS: POTASSIUM CHL 10 mEq IVPB 100 ML IV (13:23)
[2025-06-01 14:23] LABS: Sodium 150 mMol/L (136-145)
[2025-06-01 14:49] LABS: Troponin I 0.351 ng/mL (0.0-0.045)
--- NOTE | 2025-06-01 15:23 | ESPR_ITS ---
Documentation for date of: 06/01/25 Subjective Subjective Interval history: Patient is seen and examined at bedside. Noted to have significant improvement in mental status from yesterday Family is at the bedside and answered all of their questions to satisfaction and explained that the altered sensorium is likely due to the suspected UTI in the setting of worsening dementia Labs done this morning showed downtrending WBC, hypernatremia 149, hypokalemia 3.2, chloride 113, BUN 41, creatinine 1.5, glucose 222. Will continue to monitor sodium, continue IV fluids. Repleted with potassium Exam Vital Signs Temp Pulse Resp BP Pulse Ox O2 Del Method O2 Flow Rate 96.6 F L 89 19 152/80 H 92 L Room Air 3 06/01/25 12:00 06/01/25 12:00 06/01/25 12:00 06/01/25 12:00 06/01/25 12:00 06/01/25 12:00 06/01/25 08:00 Narrative Exam General: Awake. HEENT: Normocephalic, atraumatic, mucous membranes moist. Heart: Regular rate and rhythm, no murmurs. Lungs: Clear to auscultation with no wheezing or crackles. Abdomen: Soft, nondistended, nontender, positive bowel sounds. ?No guarding or rebound tenderness. Neurologic: Alert and oriented x3, no gross neurological deficit, and patient able to move all 4 extremities. Extremities: No edema. Skin: No rash or ecchymoses. Objective Labs 06/02/25 05:00 06/02/25 05:00 Labs: Laboratory Results - last 24 hr 05/31/25 05/31/25 05/31/25 15:00 15:20 18:48 WBC RBC Hgb Hct MCV MCH MCHC RDW Std Deviation Plt Count Neut % (Auto) Lymph % (Auto) [place] % (Auto) Eos % (Auto) Baso % (Auto) Neut # (Auto) Lymph # (Auto) [place] # (Auto) Eos # (Auto) Baso # (Auto) Immature Gran # (Auto) Absolute Nucleated RBC Immature Gran % Nucleated RBC % PT 10.4 INR 1.0 APTT 25.1 Puncture Site Right Radial ABG pH 7.38 ABG pCO2 36 ABG pO2 80 L ABG HCO3 21 ABG O2 Saturation 96 ABG Base Excess -3 FiO2 21 Sodium 145 Potassium 3.9 Chloride 107 Carbon Dioxide 20.3 Anion Gap 18 H BUN 30 H Creatinine 1.0 Estim Creat Clear Calc Not Performed. eGFR 58 L BUN/Creatinine Ratio 30 H Glucose [address] Glu mg/dL Hemoglobin A1c Calculated Osmolality 307 H Lactic Acid Calcium 11.5 H Corrected Calcium 11.5 H Phosphorus Magnesium 1.7 Total Bilirubin 0.9 AST 26 ALT 50 H Alkaline Phosphatase 153 H Troponin I 0.053 H* 0.093 H* B-Natriuretic Peptide 1860 H* Total Protein 7.2 Albumin 4.7 Globulin 2.5 Albumin/Globulin Ratio 1.9 Triglycerides Cholesterol LDL Cholesterol, Calc HDL Cholesterol Cholesterol/HDL Ratio TSH Ur Collection Type Urine Color Urine Clarity Urine pH Ur Specific [place] Urine Protein Urine Glucose (UA) Urine Ketones Urine Blood Urine Nitrite Urine Bilirubin Urine Urobilinogen (Auto) Ur Leukocyte Esterase Urine RBC Urine WBC Ur Squamous Epith Cells Amorphous Crystals Urine Bacteria Ur Culture Indicated? Urine Opiates Screen Urine Fentanyl Screen Ur Barbiturates Screen U Amphetamin/Meth Scrn U Benzodiazepines Scrn U Cocaine Metab Screen U Marijuana (THC) Screen Ethyl Alcohol < 3.0 05/31/25 05/31/25 06/01/25 19:46 22:42 00:00 WBC RBC Hgb Hct MCV MCH MCHC RDW Std Deviation Plt Count Neut % (Auto) Lymph % (Auto) [place] % (Auto) Eos % (Auto) Baso % (Auto) Neut # (Auto) Lymph # (Auto) [place] # (Auto) Eos # (Auto) Baso # (Auto) Immature Gran # (Auto) Absolute Nucleated RBC Immature Gran % Nucleated RBC % PT INR APTT Puncture Site ABG pH ABG pCO2 ABG pO2 ABG HCO3 ABG O2 Saturation ABG Base Excess FiO2 Sodium Potassium Chloride Carbon Dioxide Anion Gap BUN Creatinine Estim Creat Clear Calc eGFR BUN/Creatinine Ratio Glucose Estimated Ave Glu mg/dL Hemoglobin A1c Calculated Osmolality Lactic Acid 2.0 Calcium Corrected Calcium Phosphorus Magnesium Total Bilirubin AST ALT Alkaline Phosphatase Troponin I 0.181 H* B-Natriuretic Peptide Total Protein Albumin Globulin Albumin/Globulin Ratio Triglycerides Cholesterol LDL Cholesterol, Calc HDL Cholesterol Cholesterol/HDL Ratio TSH Ur Collection Type Catheter Urine Color [place] A Urine Clarity Turbid A Urine pH 5.0 Ur Specific [place] 1.044 H Urine Protein 2+ A Urine Glucose (UA) 3+ A Urine Ketones 1+ A Urine Blood 3+ A Urine Nitrite Negative Urine Bilirubin Negative Urine Urobilinogen (Auto) 2.0 Ur Leukocyte Esterase Positive Urine RBC 272 H Urine WBC 14 H Ur Squamous Epith Cells 0 Amorphous Crystals Present A Urine Bacteria 4+ A Ur Culture Indicated? Yes Urine Opiates Screen Negative Urine Fentanyl Screen Negative Ur Barbiturates Screen Negative U Amphetamin/Meth Scrn Negative U Benzodiazepines Scrn Negative U Cocaine Metab Screen Negative U Marijuana (THC) Screen Negative Ethyl Alcohol 06/01/25 06/01/25 06:03 13:54 WBC 12.3 H RBC 3.85 L Hgb 11.8 L D Hct 36.4 MCV 95 MCH 30.6 MCHC 32.4 RDW Std Deviation 51.8 H Plt Count 383 D Neut % (Auto) 81 H Lymph % (Auto) 6 L [place] % (Auto) 12 Eos % (Auto) 0 Baso % (Auto) 0 Neut # (Auto) 9.9 H Lymph # (Auto) 0.8 L [place] # (Auto) 1.5 H Eos # (Auto) 0.0 Baso # (Auto) 0.0 Immature Gran # (Auto) 0.06 H Absolute Nucleated RBC 0.00 Immature Gran % 1 H Nucleated RBC % 0 PT INR APTT Puncture Site ABG pH ABG pCO2 ABG pO2 ABG HCO3 ABG O2 Saturation ABG Base Excess FiO2 Sodium 149 H 150 H Potassium 3.2 L D Chloride 113 H Carbon Dioxide 24.2 Anion Gap 12 BUN 41 H Creatinine 1.5 H D Estim Creat Clear Calc 22.3 L eGFR 35 L BUN/Creatinine Ratio 27 H Glucose [address] Glu mg/dL 140 H Hemoglobin A1c 6.5 H Calculated Osmolality 313 H Lactic Acid Calcium 10.2 Corrected Calcium 10.4 H Phosphorus 3.9 Magnesium 3.2 H Total Bilirubin 0.3 D AST 21 ALT 36 Alkaline Phosphatase 122 H D Troponin I 0.297 H* 0.351 H* B-Natriuretic Peptide Total Protein 5.8 Albumin 3.8 D Globulin 2.0 L Albumin/Globulin Ratio 1.9 Triglycerides 231 H Cholesterol 129 L LDL Cholesterol, Calc 65 HDL Cholesterol 18 L Cholesterol/HDL Ratio 7.2 H TSH 0.78 Ur Collection Type Urine Color Urine Clarity Urine pH Ur Specific [place] Urine Protein Urine Glucose (UA) Urine Ketones Urine Blood Urine Nitrite Urine Bilirubin Urine Urobilinogen (Auto) Ur Leukocyte Esterase Urine RBC Urine WBC Ur Squamous Epith Cells Amorphous Crystals Urine Bacteria Ur Culture Indicated? Urine Opiates Screen Urine Fentanyl Screen Ur Barbiturates Screen U Amphetamin/Meth Scrn U Benzodiazepines Scrn U Cocaine Metab Screen U Marijuana (THC) Screen Ethyl Alcohol ABG Interpretation ABG results: 05/31/25 15:20 ABG pH 7.38 ABG pCO2 36 ABG pO2 80 L ABG HCO3 21 ABG O2 Saturation 96 ABG Base Excess -3 Quality Measures Quality Measures stroke Suspected type of Stroke: Non Acute Last known well (date): 05/31/25 Last known well (time): 11:00 Tenecteplase given: Reason(s) Tenecteplase not given: Stroke severity too mild (non-disabling) not given Rehab services: PT evaluation ordered VTE Prophylaxis: pharmaceutical Antithrombotic by day 2:: not indicated (describe) Statin ordered: n/a Anticoagulation ordered for A-fib or flutter (current or hx): not indicated and sepsis Current suspected stage: ruled out Possible source: pulmonary Blood cultures ordered: completed in ED Antibiotic ordered: Yes Advance care planning discussed with:: patient Assessment & Plan Assessment Current Active Medications: Generic Name Dose Route Start Last Admin Trade Name Freq PRN Reason Stop Dose Admin Dextrose 25 ml 05/31/25 18:35 Dextrose 50%-Water Inj 50 Ml Syringe IV 06/30/25 18:34 Q15MIN PRN BG 50-70 responsive npo pt Dextrose 50 ml 05/31/25 18:35 Dextrose 50%-Water Inj 50 Ml Syringe IV 06/30/25 18:34 Q15MIN PRN BG <50 OR BG <70 & pt unresponsive Glucagon 1 mg 05/31/25 18:35 Glucagon Inj 1 Mg Vial IM Q15MIN PRN BG <70, and no IV access Heparin Sodium (Porcine) 5,000 unit 05/31/25 22:00 06/01/25 13:22 Heparin Sod Inj 5000 Unit/Ml Vial SC 06/14/25 21:59 5,000 unit Q8HR DIONTE Administration Azithromycin 500 mg/ Sodium 250 mls @ 250 mls/hr 06/01/25 21:00 Chloride IV 06/07/25 20:59 QDAY@2100 DIONTE Ceftriaxone Sodium/Dextrose 1 gm in 50 mls @ 100 mls/hr 06/01/25 09:00 06/01/25 08:23 Rocephin/D5w 1gm Iv Premix IV 06/07/25 08:59 100 mls/hr QDAY DIONTE Administration Lactated Ringer's 1,000 mls @ 50 mls/hr 06/01/25 07:15 06/01/25 08:24 Lactated Ringers IV 06/02/25 03:14 50 mls/hr .Q20H ONE Administration Insulin Human Lispro 0 unit 06/01/25 00:00 06/01/25 11:39 Insulin Lispro (Admelog) 1 Unit/0.01 Ml Unit SC 07/01/25 00:00 1 unit Q6HR DIONTE Administration Protocol Levetiracetam 500 mg 06/01/25 09:00 06/01/25 08:24 Levetiracetam Inj 100 Mg/Ml Vial 5ml IVP 07/01/25 08:59 500 mg Q12HR DIONTE Administration Plan Patient is a 79-year-old F with a PMH of prior CVA, dementia, T2DM, hypertension, recurrent falls, chronic pain, and depression who presented on 05/31/25 after being BIBA for stroke-like symptoms, altered mentation, and general lethargy. Patient was admitted for the work-up and management of stroke- like symptoms, altered mental status, and suspected aspiration pneumonia. #Acute encephalopathy, resolved #2/2 sepsis due to UTI #Dementia Patient was BIBA on 05/31 due to concern for stroke-like symptoms, altered mentation, and general lethargy 05/[address] showed encephalomalacia of the left frontal lobe but was negative for acute hemorrhage, mass effect or midline shift. 05/31 head/neck CTA showed no critical neck arterial stenoses, cerebral large vessel arterial occlusions, or thrombus. Initial Tele-Neurology assessment of NIHSS 22 and Pre-Morbid Modified Jack Scale 4 Dx: -TSH ordered, showed 0.78 -UA suggestive of UTI Rx: -Received fluids in the ED -Started on Ceftriaxone and Azithromycin(05/31 - -Blood and urine cultures sent, pending -Will continue to monitor mentation #Hypernatremia #Hyperchloremia - Sodium as of 05/28/2025 is 149, chloride is 113 - Initially started on NS due to suspected dehydration but as the sodium climbed up to 150, patient is started on D5W Plan - Sodium trending every 6 hourly and adjust the D5 W rate based on sodium levels #Leukocytosis - Infection Vs Dehydration 05/31 CXR showed Dense Breast shadow 05/31 admission WBC 14.6 Dx: -MRSA nasal screen ordered, showed -05/31 BCx ordered, showed Rx: -Rocephin 1 g IV qD [05/31--] -Azithromycin 500 mg IV qD [05/31--] -Chest physiotherapy -Aspiration precautions #UTI 05/31 UA showed turbid orange urine of pH 5.0, specific gravity 1.044, 2+ protein, 3+ glucose, 1+ ketones, 3+ blood, negative nitrite, positive leukocyte esterase, urine RBC 272, urine WBC 14, presence of amorphous crystals, and 4+ bacteria. Patient denied any dysuria or sensation of burning during micturition Dx: -05/31 UCx ordered, showed Rx: -Antibiotics as above #NSTEMI, Type I vs. Type II 05/31 admission troponin 0.053->0.093 Likely Type II demand ischemia i/s/o intravascular depletion from dehydration Rx: -Trend troponin q6HR #HAGMA, resolved 05/31 admission anion gap 18, downtrended to 12 #Hypercalcemia, resolved 05/31 admission calcium 11.5 --> 10.2 Likely 2/2 severe dehydration #T2DM 05/31 admission blood glucose 337 Dx: -HgbA1c ordered, showed 6.5 Rx: -Insulin sliding scale -Monitor blood glucose Hospital Management: Disposition: Admitted to [facility] for the work-up and management of stroke-like symptoms, altered mental status, and suspected aspiration pneumonia Diet: Carb consistent GI Prophylaxis: Not Indicated Bowel Prophylaxis: None DVT Prophylaxis: Heparin 5U SC q8HR CODE STATUS: Full Code Patient plan of care was discussed with the attending physician, Dr. Jung Jiménez, PGY2 Attending Provider Attestation/Addendum I have examined the patient, reviewed labs and imaging findings, discussed the case with the resident(s), and reviewed entered orders. I agree with the plan of care as outlined in this note, with these additional summaries/recommendations: Patient seen at bedside. No acute overnight events. Today patient remains encephalopathic although improved. Most likely etiology for AMS is infectious versus metabolic with the least likely being CVA. There was concern for CVA on admission although given patient's improvement and no identifiable neurodeficits, MRI was not ordered. Head and neck CTA negative for LVO and dissection or stenosis. We will continue to treat underlying etiologies and monitor for resolution. Patient was found to have bilateral pneumonia as well as urinary tract infection. Continue IV antibiotics. Continue aspiration precautions per speech therapy. Patient has underlying CHF but appears to be euvolemic at this time. Will resume home medicines as needed. Lactic acidosis resolved. Hypercalcemia significantly improved with fluids and most likely secondary to dehydration. No further workup needed at this time. Continue insulin sliding scale for diabetes mellitus type 2 with Accu-Cheks. Target blood sugar 140-180 while hospitalized. Patient encouraged to increase her free water intake. Mild hypokalemia and replacement given. Patient updated on the plan and in agreement. All questions answered to satisfaction. Please see residents note for additional details and management. Dr. Jung MD
[2025-06-01] MEDS: DEXTROSE 5%-WATER 1,000 ML 50 ML IV (16:42)
[2025-06-01] MEDS: POTASSIUM CHL 10 mEq IVPB 100 ML 100 MEQ IV (16:43)
[2025-06-01 18:21] LABS: Troponin I 0.274 ng/mL (0.0-0.045)
[2025-06-01] MEDS: AZITHROMYCIN INJ 500 MG in SODIUM CHLORIDE 0.9% 250 ML 250 ML 250 MG IV (20:34)
[2025-06-01 22:02] LABS: Sodium 149 mMol/L (136-145)
[2025-06-02] VITALS (13 sets, daily range): BP systolic 116–158; BP diastolic 75–98; PULSE 85–156; RESP 15–353; TEMP 36.4–37.5; O2SAT 92–98; BMI 14.8; BMI 14.9
[2025-06-02 05:36] LABS: Basophils # (Auto) 0.0 Thou/mm3 (0.0-0.2); Basophils % (Auto) 0 % (0-2.5); Eosinophils # (Auto) 0.0 Thou/mm3 (0.0-0.5); Eosinophils % (Auto) 0 % (0-10); Hematocrit 34.3 % (36.0-46.0); Hemoglobin 11.4 g/dL (12.0-16.0); Immature Granulocytes Auto 0.08 Thou/mm3 (0.00-0.00); Lymphocytes # (Auto) 0.8 Thou/mm3 (1.0-4.8); Lymphocytes % (Auto) 7 % (10-50); Mean Corpuscular HGB Conc 33.2 g/dl (31.0-37.0); Mean Corpuscular Hemoglobin 30.9 pg (25.0-35.0); Mean Corpuscular Volume 93 fL (80-100); Monocytes # (Auto) 0.7 Thou/mm3 (0.0-0.8); Monocytes % (Auto) 6 % (0-12); Neutrophils # (Auto) 9.7 Thou/mm3 (1.8-7.7); Neutrophils % (Auto) 86 % (37-80); Nucleated Red Blood Cell # 0.00 Thou/mm3 (0.00-0.00); Nucleated Red Blood Cell % 0 /100 WBC (0); Platelet Count 374 Thou/mm3 (140-440); RDW Standard Deviation 51.3 fL (36.4-46.3); Red Blood Count 3.69 Miln/mm3 (4.00-5.20); White Blood Count 11.3 Thou/mm3 (3.6-11.0)
--- NOTE | 2025-06-02 05:46 | EKG_ITS ---
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 : 1945 Requested By: Colton Benítez Order Number: [id number] Reading MD: Colton Benítez Measurements Intervals [place] Rate: 143 P: NC: QRS: -61 QRSD: 138 T: 100 QT: 352 QTc: 543 Interpretive Statements ATRIAL FIBRILLATION WITH RAPID VENTRICULAR RESPONSE MARKED LEFT AXIS DEVIATION LEFT BUNDLE BRANCH BLOCK Compared to ECG 05/31/2025 15:20:43 Left-axis deviation now present Left bundle-branch block now present Sinus tachycardia no longer present Intraventricular conduction delay no longer present Left ventricular hypertrophy no longer present ST (T wave) deviation no longer present Myocardial infarct finding no longer present /store/S0/[id number]/[id number].pdf
[2025-06-02 05:56] LABS: Alanine Aminotransferase 39 U/L (10-49); Albumin, Serum 4.1 gm/dL (3.4-4.8); Albumin/Globulin Ratio 2.2 (1.2-2.2); Alkaline Phosphatase 133 U/L (46-116); Anion Gap 11 (7-16); Aspartate Amino Transferase 36 U/L (0-34); BUN/Creatinine Ratio 32 Ratio (12-20); Bilirubin,Total 0.4 mg/dL (0.3-1.2); Blood Urea Nitrogen 38 mg/dL (9-23); Calcium 10.3 mg/dL (8.3-10.6); Calcium (Corrected) 10.3 mg/dL (8.5-10.1); Carbon Dioxide 24.0 mMol/L (20.0-31.0); Chloride 111 mMol/L (98-107); Creatinine (Component) 1.2 mg/dL (0.6-1.3); Estimated Creatinine Clearance 27.9 mL/min (>60); Globulin 1.9 gm/dL (2.3-3.5); Glucose 279 mg/dL (74-106); Osmolality,Calculated 309 (275-295); Potassium 3.0 mMol/L (3.4-5.1); Sodium 146 mMol/L (136-145); Total Protein 6.0 gm/dL (5.7-8.2); eGFR 46 See Note
[2025-06-02] MEDS: DILTIAZEM INJ 5 MG/ML VIAL 5 ML 10 MG IV ×2 (06:03→06:14)
[2025-06-02] MEDS: INSULIN LISPRO (AdmeLOG) 1 UNIT/0.01 ML UNIT 10 UNIT SC (06:08)
[2025-06-02] MEDS: HEPARIN SOD INJ 5000 UNIT/ML VIAL SC ×3 (06:15→21:05)
--- NOTE | 2025-06-02 06:22 | PD.RESEVENT ---
Documentation for date of: 06/02/25 Event Note Event Note: Rapid response at 5:50 AM for tachycardia rate 156 Patient was laying in bed, no acute distress, denied any shortness of breath, no palpitations, no chest pains. Glucose 316, blood pressure 140/98, heart rate 150. EKG showed A-fib AVR with rate of 153. No noted past medical history of atrial fibrillation. Most likely transient A-fib due to underlying infection. Heart rate improved to 125?130 after receiving 10 mg diltiazem push x 2. [id number] score calculated to be 5. Day team to consider possible anticoagulation. Also given 10 units lispro x 1 for for blood sugar 316. Plan to start metoprolol 12.5 mg daily in setting of A-fib and heart failure.
[2025-06-02] MEDS: METOPROLOL SUCCINATE XL 25 MG TABCR 12.5 MG PO (08:01)
[2025-06-02] MEDS: POTASSIUM CHL 10 mEq IVPB 10 MEQ/100 ML BAG 100 MEQ IV ×4 (08:02→12:07)
[2025-06-02] MEDS: INSULIN LISPRO (AdmeLOG) 1 UNIT/0.01 ML UNIT SC ×3 (08:04→21:36)
[2025-06-02] MEDS: levETIRAcetam INJ 100 MG/ML VIAL 5ML 500 MG IVP (09:15)
[2025-06-02] MEDS: cefTRIAXone/D5w 1gm IV premix 1 GM/50 ML BAG IV (09:16)
[2025-06-02] MEDS: POTASSIUM CHLORIDE 10% 20 MEQ/15 ML UDC 40 MEQ PO (09:17)
--- NOTE | 2025-06-02 09:20 | ESPR_ITS ---
<Statement entered by Batsheva Holt MD - 06/03/25 07:39> Patient was seen and examined by me personally. I have directly supervised and reviewed documentation by the team resident and agree with its findings with any exceptions or additional findings as below. Plan of care was discussed with the attending, Dr. Feng. Batsheva Holt, PGY-3 Documentation for date of: 06/02/25 Subjective Subjective Interval history: Overnight, patient had a rapid response called around 0550 for AFib w/ RVR 153 for which she received diltiazem 10 mg IV push x 2 and was started on metoprolol succinate 12.5 mg PO qD as well as Plavix 75 mg PO qD . Patient was examined at bedside; they appear A&Ox1 and in NAD. Vitals/labs today significant for BP 158/94, WBC 12.3->11.3, Hgb 11.8->11.4, sodium 150->146, potassium 3.2->3.0, chloride 113->111, BUN 41->38, creatinine 1.5->1.2, blood glucose 222->279, calcium 10.3. 05/31 BCx showed NG24HR and 05/31 UCx is still pending. Physical exam was benign and unchanged from prior day. Due to patient's recent episode of AFib w/ RVR, Cardiology (Dr. Lim) was consulted. Her sodium has been improving after being started on D5W. Patient's home bupropion has been restarted at half-dose and her home Keppra has also been restarted. Due to her malnourished state and BMI of 14.9, thiamine IV supplementation has also been started. Exam Vital Signs Temp Pulse Resp BP Pulse Ox O2 Del Method O2 Flow Rate 98.6 F 101 H 15 143/80 H 98 Nasal Cannula 2 06/02/25 08:00 06/02/25 08:01 06/02/25 08:00 06/02/25 08:01 06/02/25 08:00 06/02/25 08:00 06/02/25 08:00 Narrative Exam General: Awake. HEENT: Normocephalic, atraumatic, mucous membranes moist. Heart: Regular rate and rhythm, no murmurs. Lungs: Clear to auscultation with no wheezing or crackles. Abdomen: Soft, nondistended, nontender, positive bowel sounds. ?No guarding or rebound tenderness. Neurologic: Alert and oriented x1, no gross neurological deficit, and patient able to move all 4 extremities. Extremities: No edema. Skin: No rash or ecchymoses. Objective Labs 06/03/25 04:47 06/03/25 04:47 Labs: Laboratory Results - last 24 hr 06/01/25 06/01/25 06/01/25 13:54 17:50 21:26 WBC RBC Hgb Hct MCV MCH MCHC RDW Std Deviation Plt Count Neut % (Auto) Lymph % (Auto) [place] % (Auto) Eos % (Auto) Baso % (Auto) Neut # (Auto) Lymph # (Auto) [place] # (Auto) Eos # (Auto) Baso # (Auto) Immature Gran # (Auto) Absolute Nucleated RBC Immature Gran % Nucleated RBC % Sodium 150 H 149 H Potassium Chloride Carbon Dioxide Anion Gap BUN Creatinine Estim Creat Clear Calc eGFR BUN/Creatinine Ratio Glucose Calculated Osmolality Calcium Corrected Calcium Total Bilirubin AST ALT Alkaline Phosphatase Troponin I 0.351 H* 0.274 H* Total Protein Albumin Globulin Albumin/Globulin Ratio 06/02/25 05:00 WBC 11.3 H RBC 3.69 L Hgb 11.4 L Hct 34.3 L MCV 93 MCH 30.9 MCHC 33.2 RDW Std Deviation 51.3 H Plt Count 374 Neut % (Auto) 86 H Lymph % (Auto) 7 L [place] % (Auto) 6 Eos % (Auto) 0 Baso % (Auto) 0 Neut # (Auto) 9.7 H Lymph # (Auto) 0.8 L [place] # (Auto) 0.7 Eos # (Auto) 0.0 Baso # (Auto) 0.0 Immature Gran # (Auto) 0.08 H Absolute Nucleated RBC 0.00 Immature Gran % 1 H Nucleated RBC % 0 Sodium 146 H Potassium 3.0 L Chloride 111 H Carbon Dioxide 24.0 Anion Gap 11 BUN 38 H Creatinine 1.2 Estim Creat Clear Calc 27.9 L eGFR 46 L BUN/Creatinine Ratio 32 H Glucose 279 H D Calculated Osmolality 309 H Calcium 10.3 Corrected Calcium 10.3 H Total Bilirubin 0.4 AST 36 H ALT 39 Alkaline Phosphatase 133 H Troponin I Total Protein 6.0 Albumin 4.1 Globulin 1.9 L Albumin/Globulin Ratio 2.2 ABG Interpretation ABG results: 05/31/25 15:20 ABG pH 7.38 ABG pCO2 36 ABG pO2 80 L ABG HCO3 21 ABG O2 Saturation 96 ABG Base Excess -3 Quality Measures Quality Measures stroke Suspected type of Stroke: Non Acute Last known well (date): 05/31/25 Last known well (time): 11:00 Tenecteplase given: Reason(s) Tenecteplase not given: Stroke severity too mild (non-disabling) not given Rehab services: PT evaluation ordered and Speech Language Pathology eval ordered VTE Prophylaxis: pharmaceutical Antithrombotic by day 2:: not indicated (describe) Statin ordered: >75 y/o moderate or high intensity dose Anticoagulation ordered for A- fib or flutter (current or hx): ordered and sepsis Current suspected stage: sepsis Possible source: pulmonary Blood cultures ordered: completed in ED Antibiotic ordered: Yes Advance care planning discussed with:: patient Assessment & Plan Assessment Current Active Medications: Generic Name Dose Route Start Last Admin Trade Name Freq PRN Reason Stop Dose Admin Dextrose 25 ml 05/31/25 18:35 Dextrose 50%-Water Inj 50 Ml Syringe IV 06/30/25 18:34 Q15MIN PRN BG 50-70 responsive npo pt Dextrose 50 ml 05/31/25 18:35 Dextrose 50%-Water Inj 50 Ml Syringe IV 06/30/25 18:34 Q15MIN PRN BG <50 OR BG <70 & pt unresponsive Glucagon 1 mg 05/31/25 18:35 Glucagon Inj 1 Mg Vial IM Q15MIN PRN BG <70, and no IV access Heparin Sodium (Porcine) 5,000 unit 05/31/25 22:00 06/02/25 06:15 Heparin Sod Inj 5000 Unit/Ml Vial SC 06/14/25 21:59 5,000 unit Q8HR DIONTE Administration Azithromycin 500 mg/ Sodium 250 mls @ 250 mls/hr 06/01/25 21:00 06/01/25 20:34 Chloride IV 06/07/25 20:59 250 mls/hr QDAY@2100 DIONTE Administration Ceftriaxone Sodium/Dextrose 1 gm in 50 mls @ 100 mls/hr 06/01/25 09:00 06/02/25 09:16 Rocephin/D5w 1gm Iv Premix IV 06/07/25 08:59 100 mls/hr QDAY DIONTE Administration Dextrose 1,000 mls @ 50 mls/hr 06/01/25 15:30 06/01/25 16:42 D5w IV 07/01/25 15:29 50 mls/hr .Q20H DIONTE Administration Potassium Chloride 10 meq in 100 mls @ 100 mls/hr 06/02/25 07:38 06/02/25 09:16 Kcl Ivpb IV 06/02/25 11:37 100 mls/hr Q1H DIONTE Administration Insulin Human Lispro 0 unit 06/01/25 17:00 06/02/25 08:04 Insulin Lispro (Admelog) 1 Unit/0.01 Ml Unit SC 07/01/25 16:59 2 unit AC DIONTE Administration Protocol Levetiracetam 500 mg 06/01/25 09:00 06/02/25 09:15 Levetiracetam Inj 100 Mg/Ml Vial 5ml IVP 07/01/25 08:59 500 mg Q12HR DIONTE Administration Metoprolol Succinate 12.5 mg 06/02/25 07:15 06/02/25 08:01 Metoprolol Succinate Xl 25 Mg Tabcr PO 07/02/25 07:14 12.5 mg QDAY DIONTE Administration Plan Patient is a 79-year-old F with a PMH of prior CVA, dementia, T2DM, hypertension, recurrent falls, chronic pain, and depression who presented on 05/31/25 after being BIBA for stroke-like symptoms, altered mentation, and general lethargy. Patient was admitted for the work-up and management of stroke- like symptoms, altered mental status, and suspected aspiration pneumonia. #Acute encephalopathy, resolved #2/2 sepsis due to UTI and bilateral pneumonia #Dementia Patient was BIBA on 05/31 due to concern for stroke-like symptoms, altered mentation, and general lethargy 05/[address] showed encephalomalacia of the left frontal lobe but was negative for acute hemorrhage, mass effect or midline shift. 05/31 head/neck CTA showed no critical neck arterial stenoses, cerebral large vessel arterial occlusions, or thrombus. Initial Tele-Neurology assessment of NIHSS 22 and Pre-Morbid Modified [place] Scale 4 Received fluids in the ED Currently favor initial acute encephalopathy as 2/2 UTI/sepsis with contributions by hypercalcemia (and other electrolyte derangements) in the setting of background dementia Dx: -TSH ordered, showed 0.78 -UA suggestive of UTI -05/31 BCx ordered, showed NG24HR -05/31 UCx ordered, showed ___ Rx: -Rocephin 1 g IV qD [05/31--] -s/p [id number] of Azithromycin 500 mg IV qD [05/31-06/02] -Thiamine 100 mg IV qD -Correct electrolytes as appropriate #Atrial fibrillation with rapid ventricular response, new-onset 06/02 rapid response called around 0550 for apparent new AFib w/ RVR 153 [id number]: 5 Rx: -Metoprolol succinate 12.5 mg PO qD -Plavix 75 mg PO qD -Cardiology (Dr. Lim) was consulted, appreciate recommendations #Electrolyte derangements #Hypernatremia, resolved #Hyperchloremia, resolving #Hypokalemia Sodium as of 05/28/2025 is 149, chloride is 113 Initially started on NS due to suspected dehydration but as the sodium climbed up to 150, patient was started on D5W Rx: -Sodium trending every 6 hourly and adjust the D5W rate based on sodium levels -Correct electrolytes as appropriate #Bilateral pneumonia, concerning for aspiration #Leukocytosis - infection vs dehydration 05/31 CXR showed dense breast shadow 05/31 admission WBC 14.6 Dx: -MRSA nasal screen ordered, negative -05/31 BCx ordered, showed NG24HR Rx: -Rocephin 1 g IV qD [05/31--] -s/p 2-zaf-[id number] of Azithromycin 500 mg IV qD [05/31-06/02] -Chest physiotherapy -Aspiration precautions #UTI 05/31 UA showed turbid orange urine of pH 5.0, specific gravity 1.044, 2+ protein, 3+ glucose, 1+ ketones, 3+ blood, negative nitrite, positive leukocyte esterase, urine RBC 272, urine WBC 14, presence of amorphous crystals, and 4+ bacteria. Patient denied any dysuria or sensation of burning during micturition Dx: -05/31 UCx ordered, showed ___ Rx: -Antibiotics as above #NSTEMI, Type I vs. Type II, resolved 05/31 admission troponin 0.053->0.093 06/01 troponin down-trended from 0.351->0.274 Likely Type II demand ischemia i/s/o intravascular depletion from dehydration Rx: -Trend troponin q6HR #HAGMA, resolved 05/31 admission anion gap 18, downtrended to 12 #Hypercalcemia, resolved 05/31 admission calcium 11.5 --> 10.2 Likely 2/2 severe dehydration #T2DM 05/31 admission blood glucose 337 Dx: -HgbA1c ordered, showed 6.5 Rx: -Insulin sliding scale -Monitor blood glucose AC #Hx of seizures Rx: -Keppra 500 mg PO q12HR #Hx of unspecified psychiatric disorder Rx: -Bupropion 50 mg PO qD Hospital Management: Disposition: Admitted to [facility] for the work-up and management of altered mental status and suspected aspiration pneumonia Diet: Carb Consistent GI Prophylaxis: Not Indicated Bowel Prophylaxis: None DVT Prophylaxis: Heparin 5U SC q8HR CODE STATUS: Full Code Patient plan of care was discussed with the attending physician, Dr. Jung Arizmendi, DO PGY-1 Attending Provider Attestation/Addendum I have examined the patient, reviewed labs and imaging findings, discussed the case with the resident(s), and reviewed entered orders. I agree with the plan of care as outlined in this note, with these additional summaries/recommendations: Patient seen at bedside. Overnight patient had rapid response for atrial fibrillation with rapid ventricular response. No prior history of A-fib. Patient was given diltiazem push and converted back to sinus rhythm. Patient was not started on anticoagulation at that time a [id number] score elevated. Consult in-house cardiology, recommendations appreciated. Continue to monitor on telemetry for now. Today patient remains encephalopathic although improved. Most likely etiology for AMS is infectious versus metabolic and has now developed some component of hospital-acquired delirium. Continue nonpharm measures to prevent worsening delirium & frequent reorientation. We will continue to treat underlying etiologies and monitor for resolution. Patient was found to have bilateral pneumonia as well as urinary tract infection. Continue IV antibiotics. Continue aspiration precautions per speech therapy. Follow-up culture results when available. Patient has underlying CHF but appears to be euvolemic at this time. Lactic acidosis resolved. Hypercalcemia significantly improved with fluids and most likely secondary to dehydration. No further workup needed at this time. Continue insulin sliding scale for diabetes mellitus type 2 with Accu-Cheks. Target blood sugar 140-180 while hospitalized. Patient encouraged to increase her free water intake. Mild hypokalemia and replacement given. Patient updated on the plan and in agreement. All questions answered to satisfaction. Please see residents note for additional details and management. Dr. Jung MD
[2025-06-02] MEDS: CLOPIDOGREL BISULFATE 75 MG TABLET PO (12:07)
--- NOTE | 2025-06-02 12:15 | PC.SS ---
SS met with son and pt regarding patient's d/c plan. Pt is alert/oriented. Pt was admitted for Acute Encephalopathy and Pneumonia. Pt is nursing home resident from [facility] and will return upon dc. Per son, pt is total care and bedbound. Son, Stephen Negron and his , Magaly Negron are patient's medical decision makers. D/C plan: Return to [place] Next of Kin: Magaly Negron, dtr in law, phone# [phone] or Stephen Negron, son, phone# [phone] PCP: Dr. Maciel Address: Correct on facesheet
--- NOTE | 2025-06-02 14:45 | PD.RESCONSUL ---
HPI Data of Consult Requesting Physician: Ambrocio Ramsay MD Admitting Provider: Ambrocio Ramsay MD Attending Provider: Ambrocio Ramsay MD Primary Care Provider: Veronique Maciel MD Consult Narrative Reason for consult: Rapid called overnight due to episode of A-fib History of present illness: Patient is a 79-year-old F with a PMH of prior CVA, dementia, T2DM, hypertension, recurrent falls, chronic pain, and depression who presented on 05/31/25 after being BIBA for stroke-like symptoms, altered mentation, and general lethargy. There were concerns of patient exhibiting signs of a stroke (symptoms not specified) at [facility] (custodial) and patient was brought by ambulance to [facility] around 2 or 3 PM. Patient does not use home O2. On 06/02/25 at 5:50 AM, rapid response was called for tachycardia of 156. Patient was not in acute distress; EKG showed A-fib RVR with rate of 153, with no PMH of atrial fibrillation. Heart rate improved to 125?130 after receiving 10 mg diltiazem push x 2. [id number] score 5. PMH: As above PSH: Bilateral hip replacement, recent history of left shoulder fracture and impact trauma to trapezium and scaphoid bones of left hand (no surgical intervention) Allergies: NKDA SH: Smoked for years but stopped a year ago, average packs per day unknown cc:: cc: Ambrocio Ramsay MD Review of Systems Review of Systems Narrative Review of Systems: Unable to obtain ROS as patient cannot answer questions Exam Vital Signs Temp Pulse Resp BP Pulse Ox O2 Del Method O2 Flow Rate 97.8 F 90 16 141/79 H 95 Nasal Cannula 2 06/02/25 12:00 06/02/25 12:00 06/02/25 12:00 06/02/25 12:00 06/02/25 12:00 06/02/25 12:00 06/02/25 12:00 Narrative Exam General: A/O x1-2, confused, no acute distress, cachectic Eyes: PERRL, EOMI. Anicteric, vision grossly intact. Ears: No ear pain, no ear discharge, Hearing grossly intact. Nose: No nasal discharge. Mouth/Throat: Moist mucous membranes, no redness, no lesions. Neck: Neck supple, non-tender, no cervical lymphadenopathy. Lungs: Clear NATALIA to auscultation and percussion, No accessory muscle use. Cardio: Normal S1/S2, regular rhythm, no murmurs, no JVD or carotid bruits. Abdomen: Soft, non-tender, no palpable masses, peristalsis present, no guarding or rebound. Extremities: Symmetrical, no significant deformities, no peripheral edema , non-tender, peripheral pulses present. Skin: No rashes, no lesions, warm to touch. Neuro: No focal neurological deficits. Psych: A/O x 1-2, confused Results Labs 06/02/25 05:00 06/02/25 14:00 Labs: Short CBC 06/02/25 Range/Units 05:00 WBC 11.3 H (3.6-11.0) Thou/mm3 Hgb 11.4 L (12.0-16.0) g/dL Hct 34.3 L (36.0-46.0) % Plt Count 374 (140-440) Thou/mm3 BMP 06/01/25 06/02/25 21:26 05:00 Sodium 149 H 146 H Potassium 3.0 L Chloride 111 H Carbon Dioxide 24.0 BUN 38 H Creatinine 1.2 Glucose 279 H D Calcium 10.3 Cardiac Enzymes 06/01/25 06/01/25 Range/Units 13:54 17:50 Troponin I 0.351 H* 0.274 H* (0.0-0.045) ng/mL Liver Function 06/02/25 Range/Units 05:00 Total Bilirubin 0.4 (0.3-1.2) mg/dL AST 36 H (0-34) U/L ALT 39 (10-49) U/L Alkaline Phosphatase 133 H (46-116) U/L Albumin 4.1 (3.4-4.8) gm/dL ABG Interpretation ABG results: 05/31/25 15:20 ABG pH 7.38 ABG pCO2 36 ABG pO2 80 L ABG HCO3 21 ABG O2 Saturation 96 ABG Base Excess -3 Quality Measures Quality Measures stroke Suspected type of Stroke: Non Acute Last known well (date): 05/31/25 Last known well (time): 11:00 Tenecteplase given: Reason(s) Tenecteplase not given: Stroke severity too mild (non-disabling) not given Rehab services: PT evaluation ordered VTE Prophylaxis: pharmaceutical Antithrombotic by day 2:: ordered Statin ordered: not ordered Anticoagulation ordered for A-fib or flutter (current or hx): not indicated and sepsis Current suspected stage: sepsis Possible source: pulmonary Blood cultures ordered: completed in ED Antibiotic ordered: Yes Advance care planning discussed with:: other Medications Home Medications and Allergies Home Medications ?Medication ?Instructions ?Recorded ?Confirmed ?Type bupropion HCl 100 mg tablet,12 hr 100 mg PO QDAY 05/31/25 05/31/25 History sustained-release clopidogrel 75 mg tablet 75 mg PO QDAY 05/31/25 05/31/25 History fluoxetine 40 mg capsule 40 mg PO QDAY 05/31/25 05/31/25 History latanoprost 0.005 % eye drops 1 drp ophthalmic (eye) QDAY 05/31/25 05/31/25 History levetiracetam 500 mg tablet 500 mg PO Q12H 05/31/25 05/31/25 History lisinopril 5 mg tablet 5 mg PO QDAY 05/31/25 05/31/25 History metformin 1,000 mg tablet 1,000 mg PO BID 05/31/25 05/31/25 History mirtazapine 7.5 mg tablet 7.5 mg PO QDAY 05/31/25 05/31/25 History ondansetron 4 mg disintegrating 4 mg PO Q6H PRN nausea and vomiting 05/31/25 05/31/25 History tablet pravastatin 40 mg tablet 40 mg PO QDAY 05/31/25 05/31/25 History timolol maleate 0.5 % eye drops 1 drp ophthalmic (eye) Q12H 05/31/25 05/31/25 History tramadol 75 mg tablet 75 mg PO Q6H PRN pain 05/31/25 05/31/25 History Allergies Allergy/AdvReac Type Severity Reaction Status Date / Time No Known Allergies Allergy Verified 05/31/25 16:38 Visit Medications Bupropion HCl (Bupropion Hcl 100 Mg Tablet) 50 mg PO QDAY DIONTE Stop: 07/02/25 10:59 Last Admin: 06/02/25 12:07 Dose: 50 mg Clopidogrel Bisulfate (Clopidogrel Bisulfate 75 Mg Tablet) 75 mg PO QDAY DIONTE Stop: 07/02/25 10:59 Last Admin: 06/02/25 12:07 Dose: 75 mg Dextrose (Dextrose 50%-Water Inj 50 Ml Syringe) 25 ml IV Q15MIN PRN PRN Reason: BG 50-70 responsive npo pt Stop: 06/30/25 18:34 Dextrose (Dextrose 50%-Water Inj 50 Ml Syringe) 50 ml IV Q15MIN PRN PRN Reason: BG <50 OR BG <70 & pt unresponsive Stop: 06/30/25 18:34 Glucagon (Glucagon Inj 1 Mg Vial) 1 mg IM Q15MIN PRN PRN Reason: BG <70, and no IV access Heparin Sodium (Porcine) (Heparin Sod Inj 5000 Unit/Ml Vial) 5,000 unit SC Q8HR [facility] Stop: 06/14/25 21:59 Last Admin: 06/02/25 06:15 Dose: 5,000 unit Azithromycin 500 mg/ Sodium (Chloride) 250 mls @ 250 mls/hr IV QDAY@2100 [facility] Stop: 06/07/25 20:59 Last Admin: 06/01/25 20:34 Dose: 250 mls/hr Ceftriaxone Sodium/Dextrose (Rocephin/D5w 1gm Iv Premix) 1 gm in 50 mls @ 100 mls/hr IV QDAY DIONTE Stop: 06/07/25 08:59 Last Admin: 06/02/25 09:16 Dose: 100 mls/hr Dextrose (D5w) 1,000 mls @ 50 mls/hr IV .Q20H [facility] Stop: 07/01/25 15:29 Last Admin: 06/01/25 16:42 Dose: 50 mls/hr Insulin Human Lispro (Insulin Lispro (Admelog) 1 Unit/0.01 Ml Unit) 0 unit SC [facility]; Protocol Stop: 07/01/25 16:59 Last Admin: 06/02/25 12:25 Dose: 3 unit Levetiracetam (Levetiracetam 250 Mg Tablet) 500 mg PO Q12HR [facility] Stop: 07/02/25 20:59 Metoprolol Succinate (Metoprolol Succinate Xl 25 Mg Tabcr) 12.5 mg PO QDAY [facility] Stop: 07/02/25 07:14 Last Admin: 06/02/25 12:08 Dose: Not Given Discontinued Medications Aspirin (Aspirin 300 Mg Supp) 300 mg HI X1 ONE Stop: 05/31/25 15:26 Last Admin: 05/31/25 17:01 Dose: 300 mg Diltiazem HCl (Diltiazem Inj 5 Mg/Ml Vial 5 Ml) 10 mg IV X1 ONE Stop: 06/02/25 05:58 Last Admin: 06/02/25 06:03 Dose: 10 mg Diltiazem HCl (Diltiazem Inj 5 Mg/Ml Vial 5 Ml) 10 mg IV X1 ONE Stop: 06/02/25 06:11 Last Admin: 06/02/25 06:14 Dose: 10 mg Fluoxetine HCl (Fluoxetine Hcl 10 Mg Capsule) 40 mg PO QDAY DIONTE Stop: 07/03/25 08:59 Azithromycin 500 mg/ Sodium (Chloride) 250 mls @ 250 mls/hr IV X1 ONE Stop: 05/31/25 16:47 Last Infusion: 05/31/25 20:21 Dose: Infused Ceftriaxone Sodium/Dextrose (Rocephin/D5w 1gm Iv Premix) 1 gm in 50 mls @ 100 mls/hr IV X1 ONE Stop: 05/31/25 16:17 Last Infusion: 05/31/25 17:35 Dose: Infused Sodium Chloride (Ns) 1,000 mls @ 999 mls/hr IV .Q1H1M ONE Stop: 05/31/25 16:48 Last Infusion: 05/31/25 18:05 Dose: Infused Acetaminophen (Ofirmev Inj) 1,000 mg in 100 mls @ 250 mls/hr IV X1 ONE Stop: 05/31/25 16:13 Last Infusion: 05/31/25 17:13 Dose: Infused Sodium Chloride (Ns) 1,000 mls @ 100 mls/hr IV .Q10H DIONTE Stop: 06/01/25 04:29 Last Admin: 05/31/25 20:06 Dose: 100 mls/hr Magnesium Sulfate (Magnesium Sulfate Ivpb) 4 gm in 50 mls @ 12.5 mls/hr IV X1 ONE Stop: 06/01/25 03:35 Last Admin: 05/31/25 23:53 Dose: 12.5 mls/hr Lactated Ringer's (Lactated Ringers) 1,000 mls @ 50 mls/hr IV .Q20H ONE Stop: 06/02/25 03:14 Last Admin: 06/01/25 08:24 Dose: 50 mls/hr Potassium Chloride (Kcl Ivpb) 10 meq in 100 mls @ 100 mls/hr IV Q1H DIONTE Stop: 06/01/25 11:14 Last Admin: 06/01/25 13:22 Dose: 100 mls/hr Potassium Chloride (Kcl Ivpb) 10 meq in 100 mls @ 100 mls/hr IV Q1H DIONTE Stop: 06/02/25 11:37 Last Admin: 06/02/25 12:07 Dose: 100 mls/hr Insulin Human Lispro (Insulin Lispro (Admelog) 1 Unit/0.01 Ml Unit) 0 unit SC AC DIONTE; Protocol Stop: 07/01/25 07:29 Insulin Human Lispro (Insulin Lispro (Admelog) 1 Unit/0.01 Ml Unit) 0 unit SC Q6HR DIONTE; Protocol Stop: 07/01/25 00:00 Last Admin: 06/01/25 11:39 Dose: 1 unit Insulin Human Lispro (Insulin Lispro (Admelog) 1 Unit/0.01 Ml Unit) 10 unit SC X1 ONE Stop: 06/02/25 06:02 Last Admin: 06/02/25 06:08 Dose: 10 unit Levetiracetam (Levetiracetam Inj 100 Mg/Ml Vial 5ml) 500 mg IVP Q12HR DIONTE Stop: 07/01/25 08:59 Last Admin: 06/02/25 09:15 Dose: 500 mg Levetiracetam (Levetiracetam 250 Mg Tablet) 500 mg PO Q12HR DIONTE Stop: 07/02/25 20:59 Potassium Chloride (Potassium Chloride 10% 20 Meq/15 Ml Udc) 40 meq PO X1 ONE Stop: 06/02/25 07:37 Last Admin: 06/02/25 09:17 Dose: 40 meq Assessment & Plan Plan Patient is a 79-year-old F with PMH of prior CVA, dementia, T2DM, hypertension, recurrent falls, chronic pain, and depression who presented on 05/31/25 for stroke-like symptoms, altered mentation, and general lethargy. Patient was admitted for the work-up and management of stroke-like symptoms, altered mental status, and suspected aspiration pneumonia. #Atrial fibrillation with rapid ventricular response, new-onset 06/02 rapid response called around 0550 for apparent new AFib w/ RVR 153; given 10mg diltiazem push x2; patient currently in sinus rhythm. [id number]: 5 Plan: Likely due to sepsis/UTI picture Continue current medication regimen Currently no need for anticoagulation If recurrent episodes once clinical has improved, reassess #NSTEMI, Type II 05/31 admission troponin 0.053; highest was 0.351 on 06/01/25 13:54, went down to 0.274 Plan: Likely Type II ischemia secondary to sepsis/UTI picture Treat underlying cause #Acute encephalopathy, resolved #2/2 sepsis due to UTI #Dementia #Electrolyte derangements #Hypernatremia, resolved #Hyperchloremia, resolving #Hypokalemia #Bilateral pneumonia, concerning for aspiration #Leukocytosis - infection vs dehydration #UTI #HAGMA, resolved #Hypercalcemia, resolved #T2DM Management per primary team This case was discussed with my attending physician, Dr. Lim. Silvino Rogers, PGY1
[2025-06-02 14:46] LABS: Albumin, Serum 3.8 gm/dL (3.4-4.8); Anion Gap 11 (7-16); BUN/Creatinine Ratio 27 Ratio (12-20); Blood Urea Nitrogen 27 mg/dL (9-23); Calcium 10.6 mg/dL (8.3-10.6); Calcium (Corrected) 10.8 mg/dL (8.5-10.1); Carbon Dioxide 23.3 mMol/L (20.0-31.0); Chloride 110 mMol/L (98-107); Creatinine (Component) 1.0 mg/dL (0.6-1.3); Estimated Creatinine Clearance 33.5 mL/min (>60); Glucose 292 mg/dL (74-106); Osmolality,Calculated 302 (275-295); Potassium 4.3 mMol/L (3.4-5.1); Sodium 144 mMol/L (136-145); eGFR 58 See Note
[2025-06-02 14:59] LABS: Phosphorous 0.6 mg/dL (2.4-5.1)
[2025-06-02] MEDS: NAPH,KPH MBDB 1 PACKET (1.5 GM) PO (16:18)
[2025-06-02] MEDS: THIAMINE INJ 100 MG/ML VIAL 2 ML IVP (16:18)
[2025-06-03] VITALS (9 sets, daily range): BP systolic 115–158; BP diastolic 76–102; PULSE 80–108; RESP 23–37; TEMP 36.2–37.1; O2SAT 89–93; BMI 15.4
[2025-06-03] MEDS: HEPARIN SOD INJ 5000 UNIT/ML VIAL SC ×3 (05:20→22:07)
[2025-06-03 05:40] LABS: Basophils # (Auto) 0.0 Thou/mm3 (0.0-0.2); Basophils % (Auto) 0 % (0-2.5); Eosinophils # (Auto) 0.0 Thou/mm3 (0.0-0.5); Eosinophils % (Auto) 0 % (0-10); Hematocrit 34.8 % (36.0-46.0); Hemoglobin 11.7 g/dL (12.0-16.0); Immature Granulocytes Auto 0.17 Thou/mm3 (0.00-0.00); Lymphocytes # (Auto) 0.9 Thou/mm3 (1.0-4.8); Lymphocytes % (Auto) 5 % (10-50); Mean Corpuscular HGB Conc 33.6 g/dl (31.0-37.0); Mean Corpuscular Hemoglobin 30.5 pg (25.0-35.0); Mean Corpuscular Volume 91 fL (80-100); Monocytes # (Auto) 0.6 Thou/mm3 (0.0-0.8); Monocytes % (Auto) 3 % (0-12); Neutrophils # (Auto) 16.3 Thou/mm3 (1.8-7.7); Neutrophils % (Auto) 91 % (37-80); Nucleated Red Blood Cell # 0.00 Thou/mm3 (0.00-0.00); Nucleated Red Blood Cell % 0 /100 WBC (0); Platelet Count 402 Thou/mm3 (140-440); RDW Standard Deviation 49.3 fL (36.4-46.3); Red Blood Count 3.84 Miln/mm3 (4.00-5.20); White Blood Count 17.9 Thou/mm3 (3.6-11.0)
[2025-06-03 06:07] LABS: Alanine Aminotransferase 82 U/L (10-49); Albumin, Serum 4.2 gm/dL (3.4-4.8); Albumin/Globulin Ratio 1.9 (1.2-2.2); Alkaline Phosphatase 184 U/L (46-116); Anion Gap 15 (7-16); Aspartate Amino Transferase 97 U/L (0-34); BUN/Creatinine Ratio 24 Ratio (12-20); Bilirubin,Total 0.6 mg/dL (0.3-1.2); Blood Urea Nitrogen 17 mg/dL (9-23); Calcium 10.3 mg/dL (8.3-10.6); Calcium (Corrected) 10.3 mg/dL (8.5-10.1); Carbon Dioxide 22.1 mMol/L (20.0-31.0); Chloride 109 mMol/L (98-107); Creatinine (Component) 0.7 mg/dL (0.6-1.3); Estimated Creatinine Clearance 49.5 mL/min (>60); Globulin 2.2 gm/dL (2.3-3.5); Glucose 309 mg/dL (74-106); Osmolality,Calculated 304 (275-295); Phosphorous 1.4 mg/dL (2.4-5.1); Potassium 3.4 mMol/L (3.4-5.1); Sodium 146 mMol/L (136-145); Total Protein 6.4 gm/dL (5.7-8.2); eGFR > 60 See Note
[2025-06-03] MEDS: INSULIN LISPRO (AdmeLOG) 1 UNIT/0.01 ML UNIT SC ×4 (07:36→20:07)
[2025-06-03] MEDS: THIAMINE INJ 100 MG/ML VIAL 2 ML IVP (08:56)
[2025-06-03] MEDS: METOPROLOL SUCCINATE XL 25 MG TABCR 12.5 MG PO (08:57)
[2025-06-03] MEDS: CLOPIDOGREL BISULFATE 75 MG TABLET PO (08:57)
[2025-06-03] MEDS: cefTRIAXone/D5w 1gm IV premix 1 GM/50 ML BAG IV (09:38)
--- NOTE | 2025-06-03 10:24 | XR_ITS ---
EXAMINATION: AP portable chest single view TECHNIQUE: Sitting AP portable chest single view Date and time: June 03, 2025, 12 0 5:00 p.m., comparison May 31, 2025 INDICATIONS: Stroke protocol FINDINGS: Mild enlargement left ventricle Vasculature appears prominent Extensive bilateral parenchymal disease Severe osteopenia IMPRESSION: Heart failure pattern with extensive perihilar edema Consider superimposed bilateral pneumonia
--- NOTE | 2025-06-03 10:26 | XR_ITS ---
Examination: MRI brain without intravenous contrast. Date and time of exam: June 03, 2025, 1434 hours INDICATIONS: Stroke alert May 31, 2025, onset focal neurologic deficit generalized weakness Technique: Multiple axial and sagittal images of the brain obtained. Siemens high-resolution 1.5 [place] short bore scanners utilized. Sagittal sections, T1-weighted, TR 500, TE 14, are performed. Axial sections proton-density and T2-weighted have been obtained. Inversion recovery axial images, TR 9, 260, TE 111, TI 2500. Diffusion weighted images, axial sections, TR 4800, TE 128, B value 1000 Axial sections, ADC map, TR 4800, TE 128 Findings: Enlargement of the sella turcica is not present. The optic chiasm and infundibular are not remarkable. Prepontine and interpeduncular cisterns are not enlarged. There is no localized enlargement of the medulla or luca. Fourth ventricle and cerebellar tonsils appear normal in position. No subacute area of hemorrhage density is seen. Mass in the cerebellopontine angle region is not evident. Globes symmetrical. Orbital musculature including medial lateral rectus muscles do not exhibit abnormality. Diffusion-weighted images demonstrate no focus of restricted diffusion. Increased white matter signal prominent including old infarct in the left frontal lobe Chronic pansinusitis, severe in the sphenoid air cells Mass effect upon the ventricular system is not identified. Impression: Negative for acute hemorrhage, mass effect or midline shift No acute infarct Prominent chronic microvascular white matter change
[2025-06-03] MEDS: POTASSIUM PHOS 22.5 MMOL in SODIUM CHLORIDE 0.9% 500 ML 500 ML 82.778 MMOL IV ×2 (10:57→11:03)
[2025-06-03] MEDS: MIRTAZAPINE 15 MG TABLET 7.5 MG PO (10:58)
[2025-06-03] MEDS: metroNIDAZOLE/NS 500 MG IVPB 500 MG/100 ML BAG 200 MG IV ×2 (10:59→22:08)
--- NOTE | 2025-06-03 13:50 | ESPR_ITS ---
Documentation for date of: 06/03/25 Subjective Subjective Interval history: No overnight events. Patient was examined at bedside; they appear A&Ox1 and in NAD. Vitals/labs today significant for HR 108, RR 33, SpO2 91% on 2 L NC, WBC 11.3->17.9, sodium 144->146, potassium 4.3->3.4, anion gap 11->15, creatinine 1.0->0.7, glucose 304, calcium 10.3, phosphorus 0.6->1.4, AST 36->97, ALT 39- >82, ALP 133->184. Physical exam remains unchanged from prior day. Patient's up-trending leukocytosis and continued confusion despite antibiotic treatment is concerning. A repeat CXR and brain MRI have been ordered and Flagyl has been started for widened anaerobic infection coverage. Patient is also noted to not be eating well; as a result, she will have her home mirtazapine restarted in hopes that it will better stimulate her appetite. Exam Vital Signs Temp Pulse Resp BP Pulse Ox O2 Del Method O2 Flow Rate 97.9 F 102 H 23 H 135/89 H 91 L Nasal Cannula 2 06/03/25 11:56 06/03/25 11:56 06/03/25 11:56 06/03/25 11:56 06/03/25 11:56 06/03/25 11:56 06/03/25 11:56 Narrative Exam General: Awake. HEENT: Normocephalic, atraumatic, mucous membranes moist. Heart: Regular rate and rhythm, no murmurs. Lungs: Clear to auscultation with no wheezing or crackles. Abdomen: Soft, nondistended, nontender, positive bowel sounds. ?No guarding or rebound tenderness. Neurologic: Alert and oriented x1, no gross neurological deficit, and patient able to move all 4 extremities. Extremities: No edema. Skin: No rash or ecchymoses. Objective Labs 06/04/25 05:10 06/04/25 05:10 Labs: Laboratory Results - last 24 hr 06/02/25 06/03/25 14:00 04:47 WBC 17.9 H D RBC 3.84 L Hgb 11.7 L Hct 34.8 L MCV 91 MCH 30.5 MCHC 33.6 RDW Std Deviation 49.3 H Plt Count 402 Neut % (Auto) 91 H Lymph % (Auto) 5 L [place] % (Auto) 3 Eos % (Auto) 0 Baso % (Auto) 0 Neut # (Auto) 16.3 H Lymph # (Auto) 0.9 L [place] # (Auto) 0.6 Eos # (Auto) 0.0 Baso # (Auto) 0.0 Immature Gran # (Auto) 0.17 H Absolute Nucleated RBC 0.00 Immature Gran % 1 H Nucleated RBC % 0 Sodium 144 146 H Potassium 4.3 D 3.4 D Chloride 110 H 109 H Carbon Dioxide 23.3 22.1 Anion Gap 11 15 BUN 27 H 17 Creatinine 1.0 0.7 Estim Creat Clear Calc 33.5 L 49.5 L eGFR 58 L > 60 BUN/Creatinine Ratio 27 H 24 H Glucose 292 H 309 H Calculated Osmolality 302 H 304 H Calcium 10.6 10.3 Corrected Calcium 10.8 H 10.3 H Phosphorus 0.6 L* 1.4 L Total Bilirubin 0.6 AST 97 H ALT 82 H Alkaline Phosphatase 184 H D Total Protein 6.4 Albumin 3.8 4.2 Globulin 2.2 L Albumin/Globulin Ratio 1.9 ABG Interpretation ABG results: 05/31/25 15:20 ABG pH 7.38 ABG pCO2 36 ABG pO2 80 L ABG HCO3 21 ABG O2 Saturation 96 ABG Base Excess -3 Quality Measures Quality Measures stroke Suspected type of Stroke: Non Acute Last known well (date): 05/31/25 Last known well (time): 11:00 Tenecteplase given: Reason(s) Tenecteplase not given: Stroke severity too mild (non-disabling) not given Rehab services: PT evaluation ordered and Speech Language Pathology eval ordered VTE Prophylaxis: pharmaceutical Antithrombotic by day 2:: not indicated (describe) Statin ordered: >75 y/o moderate or high intensity dose Anticoagulation ordered for A- fib or flutter (current or hx): not indicated and sepsis Current suspected stage: sepsis Possible source: pulmonary Blood cultures ordered: completed in ED Antibiotic ordered: Yes Advance care planning discussed with:: patient Assessment & Plan Assessment Current Active Medications: Generic Name Dose Route Start Last Admin Trade Name Freq PRN Reason Stop Dose Admin Bupropion HCl 50 mg 06/02/25 11:00 06/03/25 08:57 Bupropion Hcl 100 Mg Tablet PO 07/02/25 10:59 50 mg QDAY DIONTE Administration Clopidogrel Bisulfate 75 mg 06/02/25 11:00 06/03/25 08:57 Clopidogrel Bisulfate 75 Mg Tablet PO 07/02/25 10:59 75 mg QDAY DIONTE Administration Dextrose 25 ml 05/31/25 18:35 Dextrose 50%-Water Inj 50 Ml Syringe IV 06/30/25 18:34 Q15MIN PRN BG 50-70 responsive npo pt Dextrose 50 ml 05/31/25 18:35 Dextrose 50%-Water Inj 50 Ml Syringe IV 06/30/25 18:34 Q15MIN PRN BG <50 OR BG <70 & pt unresponsive Glucagon 1 mg 05/31/25 18:35 Glucagon Inj 1 Mg Vial IM Q15MIN PRN BG <70, and no IV access Heparin Sodium (Porcine) 5,000 unit 05/31/25 22:00 06/03/25 05:20 Heparin Sod Inj 5000 Unit/Ml Vial SC 06/14/25 21:59 5,000 unit Q8HR DIONTE Administration Ceftriaxone Sodium/Dextrose 1 gm in 50 mls @ 100 mls/hr 06/01/25 09:00 06/03/25 09:38 Rocephin/D5w 1gm Iv Premix IV 06/07/25 08:59 100 mls/hr QDAY DIONTE Administration Metronidazole 500 mg in 100 mls @ 200 mls/hr 06/03/25 10:24 06/03/25 10:59 Flagyl 500 Mg Iv IV 06/10/25 10:23 200 mls/hr Q8HR DIONTE Administration Potassium Phosphate 22.5 mmol/ 507.5 mls @ 82.778 mls/hr 06/03/25 10:27 06/03/25 11:03 Sodium Chloride IV 06/03/25 16:34 82.778 mls/hr X1 ONE Administration Insulin Human Lispro 0 unit 06/02/25 21:15 06/03/25 12:31 Insulin Lispro (Admelog) 1 Unit/0.01 Ml Unit SC 07/02/25 21:14 4 unit ACHS DIONTE Administration Protocol Levetiracetam 500 mg 06/02/25 21:00 06/03/25 08:58 Levetiracetam 250 Mg Tablet PO 07/02/25 20:59 500 mg Q12HR DIONTE Administration Metoprolol Succinate 12.5 mg 06/02/25 07:15 06/03/25 08:57 Metoprolol Succinate Xl 25 Mg Tabcr PO 07/02/25 07:14 12.5 mg QDAY DIONTE Administration Mirtazapine 7.5 mg 06/03/25 10:30 06/03/25 10:58 Mirtazapine 15 Mg Tablet PO 07/03/25 10:29 7.5 mg QDAY DIONTE Administration Thiamine HCl 100 mg 06/02/25 16:15 06/03/25 08:56 Thiamine Inj 100 Mg/Ml Vial 2 Ml IVP 07/02/25 16:14 100 mg QDAY DIONTE Administration Plan Patient is a 79-year-old F with a PMH of prior CVA, dementia, T2DM, hypertension, recurrent falls, chronic pain, and depression who presented on 05/31/25 after being BIBA for stroke-like symptoms, altered mentation, and general lethargy. Patient was admitted for the work-up and management of stroke- like symptoms, altered mental status, and suspected aspiration pneumonia. #Acute encephalopathy, resolved #2/2 sepsis due to UTI and bilateral pneumonia #Dementia Patient was BIBA on 05/31 due to concern for stroke-like symptoms, altered mentation, and general lethargy 05/[address] showed encephalomalacia of the left frontal lobe but was negative for acute hemorrhage, mass effect or midline shift. 05/31 head/neck CTA showed no critical neck arterial stenoses, cerebral large vessel arterial occlusions, or thrombus. Initial Tele-Neurology assessment of NIHSS 22 and Pre-Morbid Modified Deuel Scale 4 Received fluids in the ED Currently favor initial acute encephalopathy as 2/2 UTI/sepsis with contributions by hypercalcemia (and other electrolyte derangements) in the setting of background dementia Dx: -TSH ordered, showed 0.78 -UA suggestive of UTI -05/31 BCx ordered, showed [id number] -05/31 UCx ordered, showed ___ -06/03 brain MRI ordered, showed ___ Rx: -Rocephin 1 g IV qD [05/31--] -s/p [id number] of Azithromycin 500 mg IV qD [05/31-06/02] -Thiamine 100 mg IV qD -Correct electrolytes as appropriate #Atrial fibrillation with rapid ventricular response, new-onset 06/02 rapid response called around 0550 for apparent new AFib w/ RVR 153 [id number]: 5 Rx: -Metoprolol succinate 12.5 mg PO qD -Plavix 75 mg PO qD -Cardiology (Dr. Lim) was consulted, appreciate recommendations #Electrolyte derangements #Hypernatremia, resolved #Hyperchloremia, resolving #Hypokalemia Sodium as of 05/28/2025 is 149, chloride is 113 Initially started on NS due to suspected dehydration but as the sodium climbed up to 150, patient was started on D5W Rx: -Sodium trending every 6 hourly and adjust the D5W rate based on sodium levels -Correct electrolytes as appropriate #Bilateral pneumonia, concerning for aspiration #Leukocytosis - infection vs dehydration 05/31 CXR showed dense breast shadow 05/31 admission WBC 14.6 Dx: -MRSA nasal screen ordered, negative -05/31 BCx ordered, showed [id number] -06/03 repeat CXR ordered, showed ___ Rx: -Flagyl 500 mg IV q8HR [06/02--] -Rocephin 1 g IV qD [05/31--] -s/p [id number] of Azithromycin 500 mg IV qD [05/31-06/02] -Chest physiotherapy -Aspiration precautions #UTI 05/31 UA showed turbid orange urine of pH 5.0, specific gravity 1.044, 2+ protein, 3+ glucose, 1+ ketones, 3+ blood, negative nitrite, positive leukocyte esterase, urine RBC 272, urine WBC 14, presence of amorphous crystals, and 4+ bacteria. Patient denied any dysuria or sensation of burning during micturition Dx: -05/31 UCx ordered, showed ___ Rx: -Antibiotics as above #NSTEMI, Type I vs. Type II, resolved 05/31 admission troponin 0.053->0.093 06/01 troponin down-trended from 0.351->0.274 Likely Type II demand ischemia i/s/o intravascular depletion from dehydration Rx: -Trend troponin q6HR #HAGMA, resolved 05/31 admission anion gap 18, downtrended to 12 #Hypercalcemia, resolved 05/31 admission calcium 11.5 --> 10.2 Likely 2/2 severe dehydration #T2DM 05/31 admission blood glucose 337 Dx: -HgbA1c ordered, showed 6.5 Rx: -Insulin sliding scale -Monitor blood glucose AC #Malnutrition Patient's BMI is 15.5 and she has not been eating well lately Rx: -Mirtazapine 7.5 mg PO qD #Hx of seizures Rx: -Keppra 500 mg PO q12HR #Hx of unspecified psychiatric disorder Rx: -Bupropion 50 mg PO qD Hospital Management: Disposition: Admitted to [facility] for the work-up and management of altered mental status and suspected aspiration pneumonia Diet: Carb Consistent GI Prophylaxis: Not Indicated Bowel Prophylaxis: None DVT Prophylaxis: Heparin 5U SC q8HR CODE STATUS: Full Code Patient plan of care was discussed with the attending physician, Dr. Jung Arizmendi, PGY-1 Attending Provider Attestation/Addendum I have examined the patient, reviewed labs and imaging findings, discussed the case with the resident(s), and reviewed entered orders. I agree with the plan of care as outlined in this note, with these additional summaries/recommendations: Patient seen at bedside. No acute overnight events. Patient continues to be encephalopathic despite IV antibiotic for urinary tract infection. Possible patient has developed some component of hospital-acquired delirium at this point. Nonetheless, given the lack of movement we will order MRI brain. Hospital course complicated by new onset atrial fibrillation with rapid ventricular response. Cardiology was consulted. [id number] 5 although no need for anticoagulation at this point. Continue to monitor on telemetry. Patient was found to have bilateral pneumonia as well as urinary tract infection. Continue IV antibiotics. Continue aspiration precautions per speech therapy. Urine culture grew E. coli and blood culture showed no growth at 48 hours. Patient has underlying CHF but appears to be euvolemic at this time. Lactic acidosis resolved. Hypercalcemia significantly improved with fluids and most likely secondary to dehydration. No further workup needed at this time. Continue insulin sliding scale for diabetes mellitus type 2 with Accu-Cheks. Target blood sugar 140-180 while hospitalized. Patient encouraged to increase her free water intake. Mild hypokalemia and replacement given. Patient updated on the plan and in agreement. All questions answered to satisfaction. Please see residents note for additional details and management. Dr. Jung MD
--- NOTE | 2025-06-03 14:13 | ESPR_ITS ---
<Statement entered by Landon Lim MD - 06/05/25 18:20> The patient personally examined evaluated by me in telemetry floor initially had A-fib RVR now back to sinus rhythm sinus tachycardia mental status did not improve significantly patient's CODE STATUS changed to DNR and hospice care patient clinically appears to be stable from cardiac point of view do not think she has any acute cardiac issues at this time elderly patient with resident physician PGY 1 agree with treatment and recommendation as documented by resident physician will monitor the patient's cardiac status closely as needed Documentation for date of: 06/03/25 Subjective Subjective Interval history: Patient seen and examined at bedside; no acute events overnight. Seems more confused than yesterday; pupils asymmetric (R larger than L). Per nursing, was present yesterday as well. Exam Vital Signs Temp Pulse Resp BP Pulse Ox O2 Del Method O2 Flow Rate 97.9 F 102 H 23 H 135/89 H 91 L Nasal Cannula 2 06/03/25 11:56 06/03/25 11:56 06/03/25 11:56 06/03/25 11:56 06/03/25 11:56 06/03/25 11:56 06/03/25 11:56 Narrative Exam General: A/O x1-2, more confused than yesterday, no acute distress, cachectic Eyes: pupils appeared asymmetric (R larger than L), EOMI. Anicteric, vision grossly intact. Ears: No ear pain, no ear discharge, Hearing grossly intact. Nose: No nasal discharge. Mouth/Throat: Moist mucous membranes, no redness, no lesions. Neck: Neck supple, non-tender, no cervical lymphadenopathy. Lungs: Clear NATALAI to auscultation and percussion, No accessory muscle use. Cardio: Normal S1/S2, regular rhythm, no murmurs, no JVD or carotid bruits. Abdomen: Soft, non-tender, no palpable masses, peristalsis present, no guarding or rebound. Extremities: Symmetrical, no significant deformities, no peripheral edema , non-tender, peripheral pulses present. Skin: No rashes, no lesions, warm to touch. Neuro: No focal neurological deficits. Psych: A/O x 1-2, confused Objective Labs 06/03/25 04:47 06/03/25 04:47 Labs: Laboratory Results - last 24 hr 06/02/25 06/03/25 14:00 04:47 WBC 17.9 H D RBC 3.84 L Hgb 11.7 L Hct 34.8 L MCV 91 MCH 30.5 MCHC 33.6 RDW Std Deviation 49.3 H Plt Count 402 Neut % (Auto) 91 H Lymph % (Auto) 5 L [place] % (Auto) 3 Eos % (Auto) 0 Baso % (Auto) 0 Neut # (Auto) 16.3 H Lymph # (Auto) 0.9 L [place] # (Auto) 0.6 Eos # (Auto) 0.0 Baso # (Auto) 0.0 Immature Gran # (Auto) 0.17 H Absolute Nucleated RBC 0.00 Immature Gran % 1 H Nucleated RBC % 0 Sodium 144 146 H Potassium 4.3 D 3.4 D Chloride 110 H 109 H Carbon Dioxide 23.3 22.1 Anion Gap 11 15 BUN 27 H 17 Creatinine 1.0 0.7 Estim Creat Clear Calc 33.5 L 49.5 L eGFR 58 L > 60 BUN/Creatinine Ratio 27 H 24 H Glucose 292 H 309 H Calculated Osmolality 302 H 304 H Calcium 10.6 10.3 Corrected Calcium 10.8 H 10.3 H Phosphorus 0.6 L* 1.4 L Total Bilirubin 0.6 AST 97 H ALT 82 H Alkaline Phosphatase 184 H D Total Protein 6.4 Albumin 3.8 4.2 Globulin 2.2 L Albumin/Globulin Ratio 1.9 ABG Interpretation ABG results: 05/31/25 15:20 ABG pH 7.38 ABG pCO2 36 ABG pO2 80 L ABG HCO3 21 ABG O2 Saturation 96 ABG Base Excess -3 Quality Measures Quality Measures stroke Suspected type of Stroke: Non Acute Last known well (date): 05/31/25 Last known well (time): 11:00 Tenecteplase given: Reason(s) Tenecteplase not given: Stroke severity too mild (non-disabling) not given Rehab services: PT evaluation ordered VTE Prophylaxis: not indicated Antithrombotic by day 2:: ordered Statin ordered: not ordered Anticoagulation ordered for A-fib or flutter (current or hx): not indicated and sepsis Current suspected stage: sepsis Possible source: pulmonary Blood cultures ordered: completed in ED Antibiotic ordered: Yes Advance care planning discussed with:: other Assessment & Plan Assessment Current Active Medications: Generic Name Dose Route Start Last Admin Trade Name Freq PRN Reason Stop Dose Admin Bupropion HCl 50 mg 06/02/25 11:00 06/03/25 08:57 Bupropion Hcl 100 Mg Tablet PO 07/02/25 10:59 50 mg QDAY DIONTE Administration Clopidogrel Bisulfate 75 mg 06/02/25 11:00 06/03/25 08:57 Clopidogrel Bisulfate 75 Mg Tablet PO 07/02/25 10:59 75 mg QDAY DIONTE Administration Dextrose 25 ml 05/31/25 18:35 Dextrose 50%-Water Inj 50 Ml Syringe IV 06/30/25 18:34 Q15MIN PRN BG 50-70 responsive npo pt Dextrose 50 ml 05/31/25 18:35 Dextrose 50%-Water Inj 50 Ml Syringe IV 06/30/25 18:34 Q15MIN PRN BG <50 OR BG <70 & pt unresponsive Glucagon 1 mg 05/31/25 18:35 Glucagon Inj 1 Mg Vial IM Q15MIN PRN BG <70, and no IV access Heparin Sodium (Porcine) 5,000 unit 05/31/25 22:00 06/03/25 14:08 Heparin Sod Inj 5000 Unit/Ml Vial SC 06/14/25 21:59 5,000 unit Q8HR DIONTE Administration Ceftriaxone Sodium/Dextrose 1 gm in 50 mls @ 100 mls/hr 06/01/25 09:00 06/03/25 09:38 Rocephin/D5w 1gm Iv Premix IV 06/07/25 08:59 100 mls/hr QDAY DIONTE Administration Metronidazole 500 mg in 100 mls @ 200 mls/hr 06/03/25 10:24 06/03/25 14:05 Flagyl 500 Mg Iv IV 06/10/25 10:23 Not Given Q8HR [facility] Potassium Phosphate 22.5 mmol/ 507.5 mls @ 82.778 mls/hr 06/03/25 10:27 06/03/25 11:03 Sodium Chloride IV 06/03/25 16:34 82.778 mls/hr X1 ONE Administration Insulin Human Lispro 0 unit 06/02/25 21:15 06/03/25 12:31 Insulin Lispro (Admelog) 1 Unit/0.01 Ml Unit SC 07/02/25 21:14 4 unit ACHS DIONTE Administration Protocol Levetiracetam 500 mg 06/02/25 21:00 06/03/25 08:58 Levetiracetam 250 Mg Tablet PO 07/02/25 20:59 500 mg Q12HR DIONTE Administration Metoprolol Succinate 12.5 mg 06/02/25 07:15 06/03/25 08:57 Metoprolol Succinate Xl 25 Mg Tabcr PO 07/02/25 07:14 12.5 mg QDAY DIONTE Administration Mirtazapine 7.5 mg 06/03/25 10:30 06/03/25 10:58 Mirtazapine 15 Mg Tablet PO 07/03/25 10:29 7.5 mg QDAY DIONTE Administration Thiamine HCl 100 mg 06/02/25 16:15 06/03/25 08:56 Thiamine Inj 100 Mg/Ml Vial 2 Ml IVP 07/02/25 16:14 100 mg QDAY DIONTE Administration Plan Patient is a 79-year-old F with PMH of prior CVA, dementia, T2DM, hypertension, recurrent falls, chronic pain, and depression who presented on 05/31/25 for stroke-like symptoms, altered mentation, and general lethargy. Patient was admitted for work-up and management of stroke-like symptoms, altered mental status, and suspected aspiration pneumonia. #Atrial fibrillation with rapid ventricular response, new-onset 06/02 rapid response called around 0550 for apparent new AFib w/ RVR 153; given 10mg diltiazem push x2; patient currently in sinus rhythm. [id number]: 5 Plan: Likely due to sepsis/UTI picture Continue current medication regimen Currently no need for anticoagulation If recurrent episodes once clinical has improved, reassess #NSTEMI, Type II 05/31 admission troponin 0.053; highest was 0.351 on 06/01/25 13:54, went down to 0.274 Plan: Likely Type II ischemia secondary to sepsis/UTI picture Treat underlying cause #Acute encephalopathy, resolved #2/2 sepsis due to UTI #Dementia #Electrolyte derangements #Hypernatremia, resolved #Hyperchloremia, resolving #Hypokalemia #Bilateral pneumonia, concerning for aspiration #Leukocytosis - infection vs dehydration #UTI #HAGMA, resolved #Hypercalcemia, resolved #T2DM Management per primary team This case was discussed with my attending physician, Dr. Lim. Silvino Rogers, PGY1
--- NOTE | 2025-06-03 14:55 | PC.SS ---
Rounding: On IV ABX, DC plan back to [place] when stable
--- NOTE | 2025-06-03 18:17 | PC.NURSE ---
right above knee reddened and hot to touch is aware.
[2025-06-04] VITALS (11 sets, daily range): BP systolic 112–151; BP diastolic 75–103; PULSE 87–116; RESP 17–32; TEMP 36.1–36.7; O2SAT 90–98; BMI 15.3
[2025-06-04] MEDS: HEPARIN SOD INJ 5000 UNIT/ML VIAL SC ×2 (05:20→21:19)
[2025-06-04] MEDS: metroNIDAZOLE/NS 500 MG IVPB 500 MG/100 ML BAG 200 MG IV ×3 (05:20→21:19)
[2025-06-04 06:35] LABS: Basophils # (Auto) 0.0 Thou/mm3 (0.0-0.2); Basophils % (Auto) 0 % (0-2.5); Eosinophils # (Auto) 0.0 Thou/mm3 (0.0-0.5); Eosinophils % (Auto) 0 % (0-10); Hematocrit 34.8 % (36.0-46.0); Hemoglobin 11.8 g/dL (12.0-16.0); Immature Granulocytes Auto 0.21 Thou/mm3 (0.00-0.00); Lymphocytes # (Auto) 0.7 Thou/mm3 (1.0-4.8); Lymphocytes % (Auto) 4 % (10-50); Mean Corpuscular HGB Conc 33.9 g/dl (31.0-37.0); Mean Corpuscular Hemoglobin 30.6 pg (25.0-35.0); Mean Corpuscular Volume 90 fL (80-100); Monocytes # (Auto) 0.5 Thou/mm3 (0.0-0.8); Monocytes % (Auto) 3 % (0-12); Neutrophils # (Auto) 18.8 Thou/mm3 (1.8-7.7); Neutrophils % (Auto) 93 % (37-80); Nucleated Red Blood Cell # 0.02 Thou/mm3 (0.00-0.00); Nucleated Red Blood Cell % 0 /100 WBC (0); Platelet Count 434 Thou/mm3 (140-440); RDW Standard Deviation 49.4 fL (36.4-46.3); Red Blood Count 3.86 Miln/mm3 (4.00-5.20); White Blood Count 20.4 Thou/mm3 (3.6-11.0)
[2025-06-04 06:37] LABS: Alanine Aminotransferase 56 U/L (10-49); Albumin, Serum 3.9 gm/dL (3.4-4.8); Albumin/Globulin Ratio 1.5 (1.2-2.2); Alkaline Phosphatase 179 U/L (46-116); Anion Gap 16 (7-16); Aspartate Amino Transferase 40 U/L (0-34); BUN/Creatinine Ratio 27 Ratio (12-20); Bilirubin,Total 0.7 mg/dL (0.3-1.2); Blood Urea Nitrogen 16 mg/dL (9-23); Calcium 10.3 mg/dL (8.3-10.6); Calcium (Corrected) 10.4 mg/dL (8.5-10.1); Carbon Dioxide 20.4 mMol/L (20.0-31.0); Chloride 113 mMol/L (98-107); Creatinine (Component) 0.6 mg/dL (0.6-1.3); Estimated Creatinine Clearance 57.1 mL/min (>60); Globulin 2.6 gm/dL (2.3-3.5); Glucose 285 mg/dL (74-106); Osmolality,Calculated 307 (275-295); Potassium 3.1 mMol/L (3.4-5.1); Sodium 149 mMol/L (136-145); Total Protein 6.5 gm/dL (5.7-8.2); eGFR > 60 See Note
[2025-06-04] MEDS: INSULIN LISPRO (AdmeLOG) 1 UNIT/0.01 ML UNIT SC (07:45)
[2025-06-04] MEDS: MIRTAZAPINE 15 MG TABLET 7.5 MG PO (08:09)
[2025-06-04] MEDS: METOPROLOL SUCCINATE XL 25 MG TABCR 12.5 MG PO (08:09)
[2025-06-04] MEDS: CLOPIDOGREL BISULFATE 75 MG TABLET PO (08:10)
[2025-06-04] MEDS: cefTRIAXone/D5w 1gm IV premix 1 GM/50 ML BAG IV (08:10)
[2025-06-04 09:34] LABS: Parathyroid Hormone Intact 38.9 pg/ml (18.5-88.0)
[2025-06-04] MEDS: INSULIN DEGLUDEC 5 UNIT/0.05 ML (PER 5 UNITS) 16 UNIT SC (09:35)
[2025-06-04] MEDS: POT PHOS 15 mMol in NS 250 ML 15 MMOL/250 ML BAG 62.5 MMOL IV ×2 (09:39→13:41)
[2025-06-04] MEDS: DEXTROSE 5%-WATER 1,000 ML 50 ML IV (09:43)
[2025-06-04] MEDS: THIAMINE INJ 100 MG/ML VIAL 2 ML IVP (09:51)
--- NOTE | 2025-06-04 10:41 | ESPR_ITS ---
<Statement entered by Batsheva Holt MD - 06/05/25 14:23> Patient was seen and examined by me personally. I have directly supervised and reviewed documentation by the team resident and agree with its findings with any exceptions or additional findings as below. Plan of care was discussed with the attending, Dr. Feng. Batsheva Holt, PGY-3 Documentation for date of: 06/04/25 Subjective Subjective Interval history: No overnight events. Patient was examined at bedside; they appear A&Ox0 (responds to verbal commands but cannot communicate intelligibly) and seem deeply uncomfortable and tachypneic. Vitals/labs today significant for HR 116, RR 31, SpO2 92% on 3 L NC (increased oxygen need from yesterday), WBC 17.9- >20.4, sodium 149, potassium 3.1, glucose 285, corrected calcium 10.4. Physical exam notable for tachycardia, rhonchi on auscultation of anterior lung tavarez bilaterally, and general lethargy and failure to thrive. Overall, patient seems clinically worsened from yesterday despite ongoing antibiotic treatment for her pneumonia and UTI. She seems more confused, is requiring more supplemental oxygen, and continues to have electrolyte derangements including hypernatremia, hypokalemia, and hypercalcemia. There are concerns that patient may be continuing to aspirate so patient has been made NPO and Flagyl IV has been started for anaerobic coverage. We will also follow-up with speech therapy regarding patient's ability to swallow and the severity of dysphagia she has (of note, patient and family are not amenable to the option of PEG tube). Patient's son Tab (decision-maker) was present at bedside today and a discussion was held regarding patient's deteriorating condition and Tab seemed amenable to placing patient on hospice tomorrow. Due to the above, initial plans to obtain a CT pulmonary angiogram (to rule out PE) and salmon-scan the patient with a CT CAP for occult etiologies like malignancy have been rejected and patient will undergo conservative management that includes D5W infusion to improve patient's hyponatremia, adjustment of patient's insulin regimen for better blood glucose control, and continued antibiotic treatment of suspected aspiration pneumonia and UTI. Exam Vital Signs Temp Pulse Resp BP Pulse Ox O2 Del Method O2 Flow Rate 97.5 F 116 H 22 H 140/96 H 91 L Nasal Cannula 3 06/04/25 08:00 06/04/25 08:09 06/04/25 08:00 06/04/25 08:09 06/04/25 08:00 06/04/25 08:00 06/04/25 08:00 Narrative Exam General: Awake. Lethargic and distressed seeming. HEENT: Normocephalic, atraumatic, mucous membranes dry. Heart: Tachycardic rate and normal rhythm, no murmurs. Lungs: Rhonchi on auscultation of anterior lung tavarez bilaterally. Tachypneic on 3 L NC. Abdomen: Soft, nondistended, nontender, positive bowel sounds. ?No guarding or rebound tenderness. Neurologic: Alert and oriented x0 Extremities: No edema. Skin: No rash or ecchymoses. Objective Labs 06/05/25 05:02 06/05/25 05:02 Labs: Laboratory Results - last 24 hr 06/04/25 05:10 WBC 20.4 H RBC 3.86 L Hgb 11.8 L Hct 34.8 L MCV 90 MCH 30.6 MCHC 33.9 RDW Std Deviation 49.4 H Plt Count 434 D Neut % (Auto) 93 H Lymph % (Auto) 4 L [place] % (Auto) 3 Eos % (Auto) 0 Baso % (Auto) 0 Neut # (Auto) 18.8 H Lymph # (Auto) 0.7 L [place] # (Auto) 0.5 Eos # (Auto) 0.0 Baso # (Auto) 0.0 Immature Gran # (Auto) 0.21 H Absolute Nucleated RBC 0.02 H Immature Gran % 1 H Nucleated RBC % 0 Sodium 149 H Potassium 3.1 L Chloride 113 H Carbon Dioxide 20.4 Anion Gap 16 BUN 16 Creatinine 0.6 Estim Creat Clear Calc 57.1 L eGFR > 60 BUN/Creatinine Ratio 27 H Glucose 285 H Calculated Osmolality 307 H Calcium 10.3 Corrected Calcium 10.4 H Total Bilirubin 0.7 AST 40 H ALT 56 H Alkaline Phosphatase 179 H Total Protein 6.5 Albumin 3.9 Globulin 2.6 Albumin/Globulin Ratio 1.5 PTH Intact 38.9 ABG Interpretation ABG results: 05/31/25 15:20 ABG pH 7.38 ABG pCO2 36 ABG pO2 80 L ABG HCO3 21 ABG O2 Saturation 96 ABG Base Excess -3 Quality Measures Quality Measures stroke Suspected type of Stroke: Non Acute Last known well (date): 05/31/25 Last known well (time): 11:00 Tenecteplase given: Reason(s) Tenecteplase not given: Stroke severity too mild (non-disabling) not given Rehab services: PT evaluation ordered and Speech Language Pathology eval ordered VTE Prophylaxis: pharmaceutical Antithrombotic by day 2:: not indicated (describe) Statin ordered: >75 y/o moderate or high intensity dose Anticoagulation ordered for A- fib or flutter (current or hx): not indicated and sepsis Current suspected stage: sepsis Possible source: pulmonary Blood cultures ordered: completed in ED Antibiotic ordered: Yes Advance care planning discussed with:: patient and child (son and [id number]) Assessment & Plan Assessment Current Active Medications: Generic Name Dose Route Start Last Admin Trade Name Freq PRN Reason Stop Dose Admin Bupropion HCl 50 mg 06/02/25 11:00 06/04/25 08:09 Bupropion Hcl 100 Mg Tablet PO 07/02/25 10:59 50 mg QDAY DIONTE Administration Clopidogrel Bisulfate 75 mg 06/02/25 11:00 06/04/25 08:10 Clopidogrel Bisulfate 75 Mg Tablet PO 07/02/25 10:59 75 mg QDAY DIONTE Administration Dextrose 25 ml 05/31/25 18:35 Dextrose 50%-Water Inj 50 Ml Syringe IV 06/30/25 18:34 Q15MIN PRN BG 50-70 responsive npo pt Dextrose 50 ml 05/31/25 18:35 Dextrose 50%-Water Inj 50 Ml Syringe IV 06/30/25 18:34 Q15MIN PRN BG <50 OR BG <70 & pt unresponsive Glucagon 1 mg 05/31/25 18:35 Glucagon Inj 1 Mg Vial IM Q15MIN PRN BG <70, and no IV access Heparin Sodium (Porcine) 5,000 unit 05/31/25 22:00 06/04/25 05:20 Heparin Sod Inj 5000 Unit/Ml Vial SC 06/14/25 21:59 5,000 unit Q8HR DIONTE Administration Ceftriaxone Sodium/Dextrose 1 gm in 50 mls @ 100 mls/hr 06/01/25 09:00 06/04/25 08:10 Rocephin/D5w 1gm Iv Premix IV 06/07/25 08:59 100 mls/hr QDAY DIONTE Administration Metronidazole 500 mg in 100 mls @ 200 mls/hr 06/03/25 10:24 06/04/25 05:20 Flagyl 500 Mg Iv IV 06/10/25 10:23 200 mls/hr Q8HR DIONTE Administration Dextrose 1,000 mls @ 50 mls/hr 06/04/25 08:30 06/04/25 09:43 D5w IV 07/04/25 08:29 50 mls/hr .Q20H DIONTE Administration Potassium Phosphate 15 mmol in 250 mls @ 62.5 mls/hr 06/04/25 08:59 06/04/25 09:39 Pot Phos 15 Mmol In Ns 250 Ml IV 06/04/25 16:58 62.5 mls/hr Q4H DIONTE Administration Insulin Human Lispro 0 unit 06/02/25 21:15 06/04/25 07:45 Insulin Lispro (Admelog) 1 Unit/0.01 Ml Unit SC 07/02/25 21:14 4 unit ACHS DIONTE Administration Protocol Levetiracetam 500 mg 06/02/25 21:00 06/04/25 08:09 Levetiracetam 250 Mg Tablet PO 07/02/25 20:59 500 mg Q12HR DIONTE Administration Metoprolol Succinate 12.5 mg 06/02/25 07:15 06/04/25 08:09 Metoprolol Succinate Xl 25 Mg Tabcr PO 07/02/25 07:14 12.5 mg QDAY DIONTE Administration Mirtazapine 7.5 mg 06/03/25 10:30 06/04/25 08:09 Mirtazapine 15 Mg Tablet PO 07/03/25 10:29 7.5 mg QDAY DIONTE Administration Multivitamins 1 tab 06/04/25 09:00 06/04/25 09:51 Multivitamins Tablet PO 07/04/25 08:59 Not Given QDAY DIONTE Potassium Phos/Sodium Phos 1 packet 06/04/25 09:00 06/04/25 09:51 [facility] Mbdb 1 Packet (1.5 Gm) PO 06/07/25 08:59 Not Given BID DIONTE Thiamine HCl 100 mg 06/02/25 16:15 06/04/25 09:51 Thiamine Inj 100 Mg/Ml Vial 2 Ml IVP 07/02/25 16:14 100 mg QDAY DIONTE Administration Plan Patient is a 79-year-old F with a PMH of prior CVA, dementia, T2DM, hypertension, recurrent falls, chronic pain, and depression who presented on 05/31/25 after being BIBA for stroke-like symptoms, altered mentation, and general lethargy. Patient was admitted for the work-up and management of stroke- like symptoms, altered mental status, and suspected aspiration pneumonia. #Acute encephalopathy, resolved #2/2 sepsis due to UTI and bilateral pneumonia #Dementia Patient was BIBA on 05/31 due to concern for stroke-like symptoms, altered mentation, and general lethargy 05/[address] showed encephalomalacia of the left frontal lobe but was negative for acute hemorrhage, mass effect or midline shift. 05/31 head/neck CTA showed no critical neck arterial stenoses, cerebral large vessel arterial occlusions, or thrombus. Initial Tele-Neurology assessment of NIHSS 22 and Pre-Morbid Modified Roosevelt Scale 4 Received fluids in the ED Currently favor initial acute encephalopathy as 2/2 UTI/sepsis with contributions by hypercalcemia (and other electrolyte derangements) in the setting of background dementia Dx: -TSH ordered, showed 0.78 -UA suggestive of UTI -05/31 BCx ordered, showed [id number] -05/31 UCx ordered, grew salmon-sensitive E.coli -06/03 brain MRI ordered, negative for acute infarct Rx: -Flagyl 500 mg IV q8HR [06/03--] -Rocephin 1 g IV qD [05/31--] -s/p [id number] of Azithromycin 500 mg IV qD [05/31-06/02] -Thiamine 100 mg IV qD -Correct electrolytes as appropriate #Atrial fibrillation with rapid ventricular response, new-onset, currently rate- controlled 06/02 rapid response called around 0550 for apparent new AFib w/ RVR 153 [id number]: 5 Rx: -Metoprolol succinate 12.5 mg PO qD -Plavix 75 mg PO qD -Cardiology (Dr. Lim) was consulted, appreciate recommendations #Congestive heart failure, EF 40-45%, with grade II diastolic dysfunction Seen on 05/31 echo Rx: -Metoprolol succinate 12.5 mg PO qD -Consider initiating GDMT should patient's current condition improve -Cardiology (Dr. Lim) was consulted, appreciate recommendations #Electrolyte derangements #Hypernatremia #Hyperchloremia #Hypokalemia #Hypophospatemia Sodium as of 05/28/2025 is 149, chloride is 113 Initially started on NS due to suspected dehydration but as the sodium climbed up to 150, patient was started on D5W 06/04 sodium is once again up-trending back to 149 after having fallen to 144- 146 the previous day, and potassium continues to be low at 3.1 Patient's phosphorus has also been severely reduced, with levels as low as 0.6, which may be concerning for refeeding syndrome Rx: -D5W @ 100 cc/hr -Sodium trending every 6 hourly and adjust the D5W rate based on sodium levels -Correct electrolytes as appropriate #Hypercalcemia #C/f occult malignancy 05/31 admission calcium 11.5 --> 10.2 Likely 2/2 severe dehydration but malignancy is also a differential Dx: -06/04 salmon-scan with CT CAP to evaluate for occult malignancy not ordered as patient will likely be going to hospice Rx: -D5W @ 100 cc/hr #Bilateral pneumonia, concerning for aspiration, not improving despite antibiotic treatment (with increasing oxygen requirements) #Leukocytosis, up-trending despite antibiotic treatment #Dysphagia 05/31 CXR showed dense breast shadow 05/31 admission WBC 14.6 Dx: -MRSA nasal screen ordered, negative -06/03 repeat CXR ordered, showed heart failure pattern with extensive perihilar edema and possible superimposed bilateral pneumonia -06/04 CT pulmonary angiogram not ordered as patient will likely be going to hospice Rx: -NPO status -Follow up with speech therapy regarding patient's swallowing status (patient and family not amenable to PEG tube) -Flagyl 500 mg IV q8HR [06/03--] -Rocephin 1 g IV qD [05/31--] -s/p [id number] of Azithromycin 500 mg IV qD [05/31-06/02] -Chest physiotherapy -Aspiration precautions RRx: -06/04 patient is now requiring 3 L NC instead of 2 L and seems to have worsening respiratory status despite being on antibiotics for pneumonia #UTI 05/31 UA showed turbid orange urine of pH 5.0, specific gravity 1.044, 2+ protein, 3+ glucose, 1+ ketones, 3+ blood, negative nitrite, positive leukocyte esterase, urine RBC 272, urine WBC 14, presence of amorphous crystals, and 4+ bacteria. Patient denied any dysuria or sensation of burning during micturition Dx: -05/31 UCx ordered, grew salmon-sensitive E.coli Rx: -Antibiotics as above #NSTEMI, Type I vs. Type II, resolved 05/31 admission troponin 0.053->0.093 06/01 troponin down-trended from 0.351->0.274 Likely Type II demand ischemia i/s/o intravascular depletion from dehydration #HAGMA, resolved 05/31 admission anion gap 18, downtrended to 12 #T2DM 05/31 admission blood glucose 337 Dx: -HgbA1c ordered, showed 6.5 Rx: -Insulin sliding scale -Monitor blood glucose AC #Malnutrition Patient's BMI is 15.5 and she has not been eating well lately Rx: -Mirtazapine 7.5 mg PO qD #Hx of seizures Rx: -Keppra 500 mg PO q12HR #Hx of unspecified psychiatric disorder Rx: -Bupropion 50 mg PO qD Hospital Management: Disposition: Admitted to [facility] for the work-up and management of altered mental status and suspected aspiration pneumonia Diet: Carb Consistent GI Prophylaxis: Not Indicated Bowel Prophylaxis: None DVT Prophylaxis: Heparin 5U SC q8HR CODE STATUS: Full Code Patient plan of care was discussed with the attending physician, Dr. Jung Arizmendi, DO PGY-1 Attending Provider Attestation/Addendum I have examined the patient, reviewed labs and imaging findings, discussed the case with the resident(s), and reviewed entered orders. I agree with the plan of care as outlined in this note, with these additional summaries/recommendations: Patient and patient's children seen at bedside. Additional information was obtained from patient's children who report patient has had a lengthy history of medical problems over the last couple years. They report over the last couple months patient's mental status has changed and apparently does not even recognize her own kids at certain times. Given this history more likely patient has acute on chronic encephalopathy. Patient likely has some form of underlying cognitive impairment at baseline. Nonetheless we have treated patient's infection with no improvement in mental status. MRI brain was obtained which was negative for acute CVA. Goals of care was held with patient's kids who reported there has already been discussions about possible hospice prior to hospitalization. We will make hospice referral for now. In the meantime patient has had increasing O2 requirements, worsening leukocytosis, and now failure to thrive. Suspect patient has had recurrent aspirations given adequate antibiotic coverage. Given patient's altered mental status likely unreliable swallow evaluations at this time. Continue nonpharm measures to present delirium. We will order CT chest, abdomen, and pelvis. Continue IV antibiotic. Hospital course complicated by new onset atrial fibrillation with rapid ventricular response. Cardiology was consulted. [id number] 5 although no need for anticoagulation at this point. Continue to monitor on telemetry. Patient was found to have bilateral pneumonia as well as urinary tract infection. Continue IV antibiotics. Continue aspiration precautions per speech therapy. Urine culture grew E. coli and blood culture showed no growth at 48 hours. Patient has underlying CHF. Lactic acidosis resolved. Hypercalcemia significantly improved with fluids and most likely secondary to dehydration. Order PTH. Continue insulin sliding scale for diabetes mellitus type 2 with Accu-Cheks. Target blood sugar 140-180 while hospitalized. Mild hypokalemia and replacement given. Patient updated on the plan and in agreement. All questions answered to satisfaction. Please see residents note for additional details and management. Dr. Jung MD
[2025-06-04] MEDS: MORPHINE SULF INJ 4 MG/ML VIAL 0.5 MG IVP (12:52)
--- NOTE | 2025-06-04 13:43 | PC.SS ---
SS spoke to Magaly Negron dtr in law, phone# [phone] and on speaker was son Stephen, in regards to DC plan. Plan for pt to transition to Hospice services with Francesca and DC back to [facility] tomorrow afternoon. SS to update Francesca Briscoe [phone] on DC time so they can meet pt at [facility].
--- NOTE | 2025-06-04 14:30 | PC.SS ---
Hospice referral submitted to [place] via [employer]
[2025-06-04] MEDS: SCOPOLAMINE 1 MG TDSY TOP (14:50)
--- NOTE | 2025-06-04 16:36 | ESPR_ITS ---
<Statement entered by Landon Lim MD - 06/05/25 18:20> I personally evaluated examined the patient with resident physician PGY 1 patient condition remains unchanged hemodynamically stable family decided to make the patient DNR and hospice care agreed treatment plan recommendation as documented no further episodes A-fib hence we will treat this as one-time A-fib no need for anticoagulation. Documentation for date of: 06/04/25 Subjective Subjective Interval history: Patient seen and examined at bedside; no acute events overnight. Patient today is A&O x 0; per primary team patient will be placed on hospice. Pupils equal today. Exam Vital Signs Temp Pulse Resp BP Pulse Ox O2 Del Method O2 Flow Rate 98.0 F 104 H 26 H 151/92 H 91 L Nasal Cannula 2 06/04/25 12:00 06/04/25 12:00 06/04/25 12:00 06/04/25 12:00 06/04/25 12:00 06/04/25 12:00 06/04/25 12:00 Narrative Exam General: A/O x0, more confused than yesterday, no acute distress, cachectic Eyes: pupils symmetric today, EOMI. Anicteric, vision grossly intact. Ears: No ear pain, no ear discharge, Hearing grossly intact. Nose: No nasal discharge. Mouth/Throat: Moist mucous membranes, no redness, no lesions. Neck: Neck supple, non-tender, no cervical lymphadenopathy. Lungs: Clear NATALIA to auscultation and percussion, No accessory muscle use. Cardio: Normal S1/S2, regular rhythm, no murmurs, no JVD or carotid bruits. Abdomen: Soft, non-tender, no palpable masses, peristalsis present, no guarding or rebound. Extremities: Symmetrical, no significant deformities, no peripheral edema , non-tender, peripheral pulses present. Skin: No rashes, no lesions, warm to touch. Neuro: No focal neurological deficits. Psych: A/O x 0 Objective Labs 06/04/25 05:10 06/04/25 16:29 Labs: Laboratory Results - last 24 hr 06/04/25 05:10 WBC 20.4 H RBC 3.86 L Hgb 11.8 L Hct 34.8 L MCV 90 MCH 30.6 MCHC 33.9 RDW Std Deviation 49.4 H Plt Count 434 D Neut % (Auto) 93 H Lymph % (Auto) 4 L [place] % (Auto) 3 Eos % (Auto) 0 Baso % (Auto) 0 Neut # (Auto) 18.8 H Lymph # (Auto) 0.7 L [place] # (Auto) 0.5 Eos # (Auto) 0.0 Baso # (Auto) 0.0 Immature Gran # (Auto) 0.21 H Absolute Nucleated RBC 0.02 H Immature Gran % 1 H Nucleated RBC % 0 Sodium 149 H Potassium 3.1 L Chloride 113 H Carbon Dioxide 20.4 Anion Gap 16 BUN 16 Creatinine 0.6 Estim Creat Clear Calc 57.1 L eGFR > 60 BUN/Creatinine Ratio 27 H Glucose 285 H Calculated Osmolality 307 H Calcium 10.3 Corrected Calcium 10.4 H Total Bilirubin 0.7 AST 40 H ALT 56 H Alkaline Phosphatase 179 H Total Protein 6.5 Albumin 3.9 Globulin 2.6 Albumin/Globulin Ratio 1.5 PTH Intact 38.9 ABG Interpretation ABG results: 05/31/25 15:20 ABG pH 7.38 ABG pCO2 36 ABG pO2 80 L ABG HCO3 21 ABG O2 Saturation 96 ABG Base Excess -3 Quality Measures Quality Measures stroke Suspected type of Stroke: Non Acute Last known well (date): 05/31/25 Last known well (time): 11:00 Tenecteplase given: Reason(s) Tenecteplase not given: Stroke severity too mild (non-disabling) not given Rehab services: PT evaluation ordered VTE Prophylaxis: pharmaceutical Antithrombotic by day 2:: ordered Statin ordered: >75 y/o moderate or high intensity dose Anticoagulation ordered for A- fib or flutter (current or hx): not indicated and sepsis Current suspected stage: sepsis Possible source: pulmonary Blood cultures ordered: completed in ED Antibiotic ordered: Yes Advance care planning discussed with:: other Assessment & Plan Assessment Current Active Medications: Generic Name Dose Route Start Last Admin Trade Name Freq PRN Reason Stop Dose Admin Bupropion HCl 50 mg 06/02/25 11:00 06/04/25 08:09 Bupropion Hcl 100 Mg Tablet PO 07/02/25 10:59 50 mg QDAY DIONTE Administration Clopidogrel Bisulfate 75 mg 06/02/25 11:00 06/04/25 08:10 Clopidogrel Bisulfate 75 Mg Tablet PO 07/02/25 10:59 75 mg QDAY DIONTE Administration Dextrose 25 ml 11/10/25 18:35 Dextrose 50%-Water Inj 50 Ml Syringe IV 06/30/25 18:34 Q15MIN PRN BG 50-70 responsive npo pt Dextrose 50 ml 05/31/25 18:35 Dextrose 50%-Water Inj 50 Ml Syringe IV 06/30/25 18:34 Q15MIN PRN BG <50 OR BG <70 & pt unresponsive Glucagon 1 mg 05/31/25 18:35 Glucagon Inj 1 Mg Vial IM Q15MIN PRN BG <70, and no IV access Heparin Sodium (Porcine) 5,000 unit 05/31/25 22:00 06/04/25 13:37 Heparin Sod Inj 5000 Unit/Ml Vial SC 06/14/25 21:59 Not Given Q8HR DIONTE Ceftriaxone Sodium/Dextrose 1 gm in 50 mls @ 100 mls/hr 06/01/25 09:00 06/04/25 08:10 Rocephin/D5w 1gm Iv Premix IV 06/07/25 08:59 100 mls/hr QDAY DIONTE Administration Metronidazole 500 mg in 100 mls @ 200 mls/hr 06/03/25 10:24 06/04/25 13:44 Flagyl 500 Mg Iv IV 06/10/25 10:23 200 mls/hr Q8HR DIONTE Administration Dextrose 1,000 mls @ 50 mls/hr 06/04/25 08:30 06/04/25 09:43 D5w IV 07/04/25 08:29 50 mls/hr .Q20H DIONTE Administration Potassium Phosphate 15 mmol in 250 mls @ 62.5 mls/hr 06/04/25 08:59 06/04/25 13:41 Pot Phos 15 Mmol In Ns 250 Ml IV 06/04/25 16:58 62.5 mls/hr Q4H DIONTE Administration Insulin Human Lispro 0 unit 06/02/25 21:15 06/04/25 07:45 Insulin Lispro (Admelog) 1 Unit/0.01 Ml Unit SC 07/02/25 21:14 4 unit ACHS DIONTE Administration Protocol Levetiracetam 500 mg 06/02/25 21:00 06/04/25 08:09 Levetiracetam 250 Mg Tablet PO 07/02/25 20:59 500 mg Q12HR DIONTE Administration Metoprolol Succinate 12.5 mg 06/02/25 07:15 06/04/25 08:09 Metoprolol Succinate Xl 25 Mg Tabcr PO 07/02/25 07:14 12.5 mg QDAY DIONTE Administration Mirtazapine 7.5 mg 06/03/25 10:30 06/04/25 08:09 Mirtazapine 15 Mg Tablet PO 07/03/25 10:29 7.5 mg QDAY DIONTE Administration Multivitamins 1 tab 06/04/25 09:00 06/04/25 09:51 Multivitamins Tablet PO 07/04/25 08:59 Not Given QDAY DIONTE Potassium Phos/Sodium Phos 1 packet 06/04/25 09:00 06/04/25 09:51 [facility] Mbdb 1 Packet (1.5 Gm) PO 06/07/25 08:59 Not Given BID DIONTE Thiamine HCl 100 mg 06/02/25 16:15 06/04/25 09:51 Thiamine Inj 100 Mg/Ml Vial 2 Ml IVP 07/02/25 16:14 100 mg QDAY DIONTE Administration Plan Patient is a 79-year-old F with PMH of prior CVA, dementia, T2DM, hypertension, recurrent falls, chronic pain, and depression who presented on 05/31/25 for stroke-like symptoms, altered mentation, and general lethargy. Patient was admitted for work-up and management of stroke-like symptoms, altered mental status, and suspected aspiration pneumonia. #Atrial fibrillation with rapid ventricular response, new-onset 06/02 rapid response called around 0550 for apparent new AFib w/ RVR 153; given 10mg diltiazem push x2; patient currently in sinus rhythm. [id number]: 5 Plan: Likely due to sepsis/UTI picture Continue current medication regimen Currently no need for anticoagulation If recurrent episodes once clinical has improved, reassess #NSTEMI, Type II 05/31 admission troponin 0.053; highest was 0.351 on 06/01/25 13:54, went down to 0.274 Plan: Likely Type II ischemia secondary to sepsis/UTI picture Treat underlying cause #Acute encephalopathy, resolved #2/2 sepsis due to UTI #Dementia #Electrolyte derangements #Hypernatremia, resolved #Hyperchloremia, resolving #Hypokalemia #Bilateral pneumonia, concerning for aspiration #Leukocytosis - infection vs dehydration #UTI #HAGMA, resolved #Hypercalcemia, resolved #T2DM Management per primary team This case was discussed with my attending physician, Dr. Lim. Silvino Rogers, PGY1
[2025-06-04 16:56] LABS: Anion Gap 13 (7-16); Carbon Dioxide 25.4 mMol/L (20.0-31.0); Chloride 113 mMol/L (98-107); Potassium 3.9 mMol/L (3.4-5.1); Sodium 151 mMol/L (136-145)
--- NOTE | 2025-06-04 17:55 | EVENTNT_ITS ---
Documentation for date of: 06/04/25 Event Note Event Note: Had goals of care discussion via phone with Tab, patient's son and decision- maker, as nursing staff had stated family was no longer wanting to proceed with CT studies. Tab confirmed that they would like to continue conservative treatments, including antibiotics and IV fluids for electrolyte correction, but not wanting further diagnostic imaging as the patient will be discharged on hospice tomorrow. They are okay with lab draws for now. Will cancel CT C/A/P and pulmonary angiogram. Discussed with Sy Arizmendi PGY-[address] Feng.
[2025-06-04] MEDS: levETIRAcetam INJ 100 MG/ML VIAL 5ML 500 MG IVP (21:18)
[2025-06-04] MEDS: NAPH,KPH MBDB 1 PACKET (1.5 GM) PO (21:26)
[2025-06-04 22:23] LABS: Sodium 148 mMol/L (136-145)
[2025-06-04] MEDS: DEXTROSE 5%-WATER 1,000 ML 100 ML IV (22:30)
[2025-06-05] VITALS (8 sets, daily range): BP systolic 122–146; BP diastolic 6–93; PULSE 81–108; RESP 25–36; TEMP 35.9–36.6; O2SAT 92–99; BMI 15.6
[2025-06-05] MEDS: MORPHINE SULF INJ 4 MG/ML VIAL 0.5 MG IVP (00:25)
[2025-06-05] MEDS: INSULIN LISPRO (AdmeLOG) 1 UNIT/0.01 ML UNIT SC ×3 (00:38→12:16)
[2025-06-05] MEDS: DEXTROSE 5%-WATER 1,000 ML 50 ML IV (01:13)
[2025-06-05 02:07] LABS: Sodium 147 mMol/L (136-145)
[2025-06-05] MEDS: HEPARIN SOD INJ 5000 UNIT/ML VIAL SC ×2 (05:21→13:33)
[2025-06-05] MEDS: metroNIDAZOLE/NS 500 MG IVPB 500 MG/100 ML BAG 200 MG IV ×2 (05:21→13:33)
[2025-06-05 06:22] LABS: Basophils # (Auto) 0.0 Thou/mm3 (0.0-0.2); Basophils % (Auto) 0 % (0-2.5); Eosinophils # (Auto) 0.0 Thou/mm3 (0.0-0.5); Eosinophils % (Auto) 0 % (0-10); Hematocrit 34.2 % (36.0-46.0); Hemoglobin 11.7 g/dL (12.0-16.0); Immature Granulocytes Auto 0.17 Thou/mm3 (0.00-0.00); Lymphocytes # (Auto) 0.7 Thou/mm3 (1.0-4.8); Lymphocytes % (Auto) 4 % (10-50); Mean Corpuscular HGB Conc 34.2 g/dl (31.0-37.0); Mean Corpuscular Hemoglobin 31.5 pg (25.0-35.0); Mean Corpuscular Volume 92 fL (80-100); Monocytes # (Auto) 0.7 Thou/mm3 (0.0-0.8); Monocytes % (Auto) 4 % (0-12); Neutrophils # (Auto) 16.5 Thou/mm3 (1.8-7.7); Neutrophils % (Auto) 91 % (37-80); Nucleated Red Blood Cell # 0.04 Thou/mm3 (0.00-0.00); Nucleated Red Blood Cell % 0 /100 WBC (0); Platelet Count 405 Thou/mm3 (140-440); RDW Standard Deviation 50.4 fL (36.4-46.3); Red Blood Count 3.72 Miln/mm3 (4.00-5.20); White Blood Count 18.1 Thou/mm3 (3.6-11.0)
[2025-06-05 06:58] LABS: Alanine Aminotransferase 39 U/L (10-49); Albumin, Serum 3.7 gm/dL (3.4-4.8); Albumin/Globulin Ratio 1.5 (1.2-2.2); Alkaline Phosphatase 155 U/L (46-116); Anion Gap 14 (7-16); Aspartate Amino Transferase 26 U/L (0-34); BUN/Creatinine Ratio 26 Ratio (12-20); Bilirubin,Total 0.4 mg/dL (0.3-1.2); Blood Urea Nitrogen 18 mg/dL (9-23); Calcium 9.2 mg/dL (8.3-10.6); Calcium (Corrected) 9.4 mg/dL (8.5-10.1); Carbon Dioxide 23.3 mMol/L (20.0-31.0); Chloride 112 mMol/L (98-107); Creatinine (Component) 0.7 mg/dL (0.6-1.3); Estimated Creatinine Clearance 50.1 mL/min (>60); Globulin 2.4 gm/dL (2.3-3.5); Glucose 229 mg/dL (74-106); Magnesium 1.2 mg/dL (1.6-2.6); Osmolality,Calculated 305 (275-295); Phosphorous 2.6 mg/dL (2.4-5.1); Potassium 3.1 mMol/L (3.4-5.1); Sodium 149 mMol/L (136-145); Total Protein 6.1 gm/dL (5.7-8.2); eGFR > 60 See Note
--- NOTE | 2025-06-05 09:20 | PC.NURSE ---
[facility] held morning meds d/t patient being lethargic and not being able to swallow
[2025-06-05] MEDS: cefTRIAXone/D5w 1gm IV premix 1 GM/50 ML BAG IV (09:23)
[2025-06-05] MEDS: DEXTROSE 5%-WATER 1,000 ML 100 ML IV (09:23)
[2025-06-05] MEDS: POT PHOS 15 mMol in NS 250 ML 15 MMOL/250 ML BAG 62.5 MMOL IV ×2 (09:24→13:33)
[2025-06-05] MEDS: Magnesium Sulfate 4 GM Ivpb 4 GM/50 ML BAG IV (09:24)
[2025-06-05] MEDS: levETIRAcetam INJ 100 MG/ML VIAL 5ML 500 MG IVP (09:24)
[2025-06-05] MEDS: INSULIN DEGLUDEC 5 UNIT/0.05 ML (PER 5 UNITS) 10 UNIT SC (09:25)
[2025-06-05] MEDS: THIAMINE INJ 100 MG/ML VIAL 2 ML IVP (10:00)
--- NOTE | 2025-06-05 10:51 | ESPR_ITS ---
<Statement entered by Landon Lim MD - 06/05/25 18:21> I personally evaluated examined the patient with resident physician PGY 1 patient condition remains unchanged hemodynamically stable family decided to make the patient DNR and hospice care agreed treatment plan recommendation as documented no further episodes A-fib hence we will treat this as one-time A-fib no need for anticoagulation. Documentation for date of: 06/05/25 Subjective Subjective Interval history: Patient seen and examined today; no acute events overnight. Per primary team, patient will be placed on hospice care today after discussion with family. Patient is mouth breathing today, with increased oxygen requirement (5L via oxygen mask to get to 94% O2 sat). Exam Vital Signs Temp Pulse Resp BP Pulse Ox O2 Del Method O2 Flow Rate 97.1 F 108 H 33 H 146/93 H 94 L Oxy Mask 5 06/05/25 08:00 06/05/25 08:00 06/05/25 08:00 06/05/25 08:00 06/05/25 08:00 06/05/25 08:00 06/05/25 06:54 Narrative Exam General: A/O x0, no acute distress, cachectic Eyes: pupils symmetric, EOMI. Anicteric, vision grossly intact. Ears: No ear pain, no ear discharge, Hearing grossly intact. Nose: No nasal discharge. Mouth/Throat: Moist mucous membranes, no redness, no lesions. Neck: Neck supple, non-tender, no cervical lymphadenopathy. Lungs: Clear NATALIA to auscultation and percussion, No accessory muscle use. Cardio: Normal S1/S2, regular rhythm, no murmurs, no JVD or carotid bruits. Abdomen: Soft, non-tender, no palpable masses, peristalsis present, no guarding or rebound. Extremities: Symmetrical, no significant deformities, no peripheral edema , non-tender, peripheral pulses present. Skin: No rashes, no lesions, warm to touch. Neuro: No focal neurological deficits. Psych: A/O x 0, nonresponsive Objective Labs 06/05/25 05:02 06/05/25 05:02 Labs: Laboratory Results - last 24 hr 06/04/25 06/04/25 06/05/25 16:29 21:59 01:38 WBC RBC Hgb Hct MCV MCH MCHC RDW Std Deviation Plt Count Neut % (Auto) Lymph % (Auto) [place] % (Auto) Eos % (Auto) Baso % (Auto) Neut # (Auto) Lymph # (Auto) [place] # (Auto) Eos # (Auto) Baso # (Auto) Immature Gran # (Auto) Absolute Nucleated RBC Immature Gran % Nucleated RBC % Sodium 151 H 148 H 147 H Potassium 3.9 D Chloride 113 H Carbon Dioxide 25.4 Anion Gap 13 BUN Creatinine Estim Creat Clear Calc eGFR BUN/Creatinine Ratio Glucose Calculated Osmolality Calcium Corrected Calcium Phosphorus Magnesium Total Bilirubin AST ALT Alkaline Phosphatase Total Protein Albumin Globulin Albumin/Globulin Ratio 06/05/25 05:02 WBC 18.1 H RBC 3.72 L Hgb 11.7 L Hct 34.2 L MCV 92 MCH 31.5 MCHC 34.2 RDW Std Deviation 50.4 H Plt Count 405 Neut % (Auto) 91 H Lymph % (Auto) 4 L [place] % (Auto) 4 Eos % (Auto) 0 Baso % (Auto) 0 Neut # (Auto) 16.5 H Lymph # (Auto) 0.7 L [place] # (Auto) 0.7 Eos # (Auto) 0.0 Baso # (Auto) 0.0 Immature Gran # (Auto) 0.17 H Absolute Nucleated RBC 0.04 H Immature Gran % 1 H Nucleated RBC % 0 Sodium 149 H Potassium 3.1 L D Chloride 112 H Carbon Dioxide 23.3 Anion Gap 14 BUN 18 Creatinine 0.7 Estim Creat Clear Calc 50.1 L eGFR > 60 BUN/Creatinine Ratio 26 H Glucose 229 H D Calculated Osmolality 305 H Calcium 9.2 Corrected Calcium 9.4 Phosphorus 2.6 Magnesium 1.2 L Total Bilirubin 0.4 AST 26 ALT 39 Alkaline Phosphatase 155 H D Total Protein 6.1 Albumin 3.7 Globulin 2.4 Albumin/Globulin Ratio 1.5 ABG Interpretation ABG results: 05/31/25 15:20 ABG pH 7.38 ABG pCO2 36 ABG pO2 80 L ABG HCO3 21 ABG O2 Saturation 96 ABG Base Excess -3 Quality Measures Quality Measures stroke Suspected type of Stroke: Non Acute Last known well (date): 05/31/25 Last known well (time): 11:00 Tenecteplase given: Reason(s) Tenecteplase not given: Stroke severity too mild (non-disabling) not given Rehab services: PT evaluation ordered VTE Prophylaxis: pharmaceutical Antithrombotic by day 2:: ordered Statin ordered: >75 y/o moderate or high intensity dose Anticoagulation ordered for A- fib or flutter (current or hx): not indicated and sepsis Current suspected stage: sepsis Possible source: pulmonary Blood cultures ordered: completed in ED Antibiotic ordered: Yes Advance care planning discussed with:: other Assessment & Plan Assessment Current Active Medications: Generic Name Dose Route Start Last Admin Trade Name Freq PRN Reason Stop Dose Admin Bupropion HCl 50 mg 06/02/25 11:00 06/05/25 09:52 Bupropion Hcl 100 Mg Tablet PO 07/02/25 10:59 Not Given QDAY DIONTE Clopidogrel Bisulfate 75 mg 06/02/25 11:00 06/05/25 09:52 Clopidogrel Bisulfate 75 Mg Tablet PO 07/02/25 10:59 Not Given QDAY DIONTE Dextrose 25 ml 05/31/25 18:35 Dextrose 50%-Water Inj 50 Ml Syringe IV 06/30/25 18:34 Q15MIN PRN BG 50-70 responsive npo pt Dextrose 50 ml 05/31/25 18:35 Dextrose 50%-Water Inj 50 Ml Syringe IV 06/30/25 18:34 Q15MIN PRN BG <50 OR BG <70 & pt unresponsive Glucagon 1 mg 05/31/25 18:35 Glucagon Inj 1 Mg Vial IM Q15MIN PRN BG <70, and no IV access Heparin Sodium (Porcine) 5,000 unit 05/31/25 22:00 06/05/25 05:21 Heparin Sod Inj 5000 Unit/Ml Vial SC 06/14/25 21:59 5,000 unit Q8HR DIONTE Administration Ceftriaxone Sodium/Dextrose 1 gm in 50 mls @ 100 mls/hr 06/01/25 09:00 06/05/25 09:23 Rocephin/D5w 1gm Iv Premix IV 06/07/25 08:59 100 mls/hr QDAY DIONTE Administration Metronidazole 500 mg in 100 mls @ 200 mls/hr 06/03/25 10:24 06/05/25 05:21 Flagyl 500 Mg Iv IV 06/10/25 10:23 200 mls/hr Q8HR DIONTE Administration Dextrose 1,000 mls @ 100 mls/hr 06/05/25 08:00 06/05/25 09:23 D5w IV 07/05/25 07:59 100 mls/hr .Q10H DIONTE Administration Potassium Phosphate 15 mmol in 250 mls @ 62.5 mls/hr 06/05/25 08:00 06/05/25 09:24 Pot Phos 15 Mmol In Ns 250 Ml IV 06/05/25 15:59 62.5 mls/hr Q4H DIONTE Administration Magnesium Sulfate 4 gm in 50 mls @ 12.5 mls/hr 06/05/25 08:00 06/05/25 09:24 Magnesium Sulfate Ivpb IV 06/05/25 11:59 12.5 mls/hr X1 ONE Administration Insulin Human Lispro 0 unit 06/05/25 00:00 06/05/25 05:22 Insulin Lispro (Admelog) 1 Unit/0.01 Ml Unit SC 07/05/25 00:00 2 unit Q6HR DIONTE Administration Protocol Levetiracetam 500 mg 06/04/25 21:00 06/05/25 09:24 Levetiracetam Inj 100 Mg/Ml Vial 5ml IVP 07/04/25 20:59 500 mg Q12HR DIONTE Administration Metoprolol Succinate 12.5 mg 06/02/25 07:15 06/05/25 09:52 Metoprolol Succinate Xl 25 Mg Tabcr PO 07/02/25 07:14 Not Given QDAY DIONTE Mirtazapine 7.5 mg 06/03/25 10:30 06/05/25 09:53 Mirtazapine 15 Mg Tablet PO 07/03/25 10:29 Not Given QDAY DIONTE Multivitamins 1 tab 06/04/25 09:00 06/05/25 09:53 Multivitamins Tablet PO 07/04/25 08:59 Not Given QDAY DIONTE Potassium Phos/Sodium Phos 1 packet 06/04/25 09:00 06/05/25 09:53 Naph,[facility] 1 Packet (1.5 Gm) PO 06/07/25 08:59 Not Given BID DIONTE Thiamine HCl 100 mg 06/02/25 16:15 06/05/25 10:00 Thiamine Inj 100 Mg/Ml Vial 2 Ml IVP 07/02/25 16:14 100 mg QDAY DIONTE Administration Plan Patient is a 79-year-old F with PMH of prior CVA, dementia, T2DM, hypertension, recurrent falls, chronic pain, and depression who presented on 05/31/25 for stroke-like symptoms, altered mentation, and general lethargy. Patient was admitted for work-up and management of stroke-like symptoms, altered mental status, and suspected aspiration pneumonia. #Atrial fibrillation with rapid ventricular response, new-onset 06/02 rapid response called around 0550 for apparent new AFib w/ RVR 153; given 10mg diltiazem push x2; patient currently in sinus rhythm. [id number]: 5 Plan: Likely due to sepsis/UTI picture Continue current medication regimen Currently no need for anticoagulation If recurrent episodes once clinical has improved, reassess Patient will be placed on hospice today 06/05/25 #NSTEMI, Type II 05/31 admission troponin 0.053; highest was 0.351 on 06/01/25 13:54, went down to 0.274 Plan: Likely Type II ischemia secondary to sepsis/UTI picture Treat underlying cause #Acute encephalopathy, resolved #2/2 sepsis due to UTI #Dementia #Electrolyte derangements #Hypernatremia, resolved #Hyperchloremia, resolving #Hypokalemia #Bilateral pneumonia, concerning for aspiration #Leukocytosis - infection vs dehydration #UTI #HAGMA, resolved #Hypercalcemia, resolved #T2DM Management per primary team This case was discussed with my attending physician, Dr. Lim. Silvino Rogers, PGY1
--- NOTE | 2025-06-05 12:39 | PC.SS ---
Addendum entered by KYA Ribera 06/05/25 16:22: ASW met with patient and patient family at bedside. Patient family had question in regards to medication, ASW called Tennille from [place] and requested that [place] nurse speak to family before patient leaves hospital. Tennille confirmed and stated that nurse will call patients daughter to go over hospice and medication questions. ASW informed family and Tennille from [place] that ASW will be out of office at 4:30Pm, ASW provided Tennille from [place] with tele number to communicate with bedside nurse and family. Addendum entered by KYA Ribera 06/05/25 16:09: ASW scheduled transportation for 18:00, ASW informed Beverly with [place], [facility], bedside nurse and family. ASW confirmed with bedside nurse that all medication will be discontinued. Addendum entered by KYA Ribera 06/05/25 15:48: Team A doctors informed ASW that patient is ready for d/c. ASW met with patient family who signed Notice of financial responsibility form for transportation to [facility], will schedule transportation. Addendum entered by KYA Ribera 06/05/25 14:59: Per Soraida from [facility], stated that patient does not need PASSR. Addendum entered by KYA Ribera 06/05/25 14:44: ASW confirmed with [facility] if patient can d/c, [facility] confirmed as patient is on bed hold. Original Note: ASW confirmed with patients family d/c to [facility] with [facility]. Family stated that they have coordinated with [place] and [facility].
[2025-06-05 15:51] LABS: Anion Gap 12 (7-16); Carbon Dioxide 26.4 mMol/L (20.0-31.0); Chloride 111 mMol/L (98-107); Potassium 3.5 mMol/L (3.4-5.1); Sodium 149 mMol/L (136-145)
--- NOTE | 2025-06-05 16:27 | PC.NURSE ---
Report given to Tyrese at [facility] in [place]
--- NOTE | 2025-06-05 17:40 | ESDS_ITS ---
Planned Discharge Date 06/05/25 DS: Providers Provider Date of admission: 05/31/25 18:21 Primary care physician: Veronique Maciel MD Admitting Provider: Ambrocio Ramsay MD Attending Provider on Admission: Javed Feng MD Consults: 05/31/25 14:53 Consult to Neurology / Tele-Neurology Routine Comment: Consulting Provider: [facility] 05/31/25 23:51 PT [Referral Physical Therapy] Routine Comment: Physician Instructions: 05/31/25 23:52 Referral Speech Therapy Routine Comment: 06/02/25 10:55 Consult to Cardiology Routine Comment: new onset AFib w/ RVR, suspecting poor O/P F/U Consulting Provider: Landon Lim 06/04/25 13:47 Referral Hospice Routine Comment: Attending Provider on DC: Mahad Jiménez MD Discharging Provider: Mahad Jiménez MD DS: Diagnosis Problem List Completed Was Problem List Reviewed/Reconciled?: Yes Hospital Course Hospital Course Hospital course: A 79-year-old female with significant past medical history of CVA, dementia, type 2 diabetes mellitus, hypertension, recurrent falls, chronic pain and depression was brought to the hospital with chief complaints of altered mentation and admitted for acute encephalopathy Hospital course: Vitals at the time of admission are significant for temperature 101.1 ?F, heart rate 106 bpm. Labs are significant for WBC 14.6, anion gap 18, BUN 30, creatinine 1, corrected calcium 11.5, troponin 0.53. Urinalysis significant for 2+ proteinuria, 3+ glucose, 3+ blood, positive leukocyte esterase, urine RBC 272, urine WBC 14. Head CT showed encephalomalacia of the left frontal lobe. Head and neck CTA showed no critical neck arterial stenosis. Chest x-ray showed dense breast tissue. Patient is admitted in view of acute encephalopathy secondary to urinary tract infection. Patient was treated with IV antibiotics and D5W later during the hospital stay in view of hyponatremia. Patient noted to have improvement on the date of admission but after that slowly her mentation declined and noted slow response than her usual. Urine cultures tested positive for E. coli. After having goals of care discussion with the family they opted for hospice and no further treatment. -Follow-up with PCP within 1 week of discharge. If you do not have appointment, [facility]. Call [phone] to make an appointment. -Discharging with hospice to [place] after discussing patients condition with the family -Recommended to stop all the medications as of now -Continue pleasure feeds for now -Recommend to take aspiration precautions Patient plan of care was discussed with the attending physician, Dr. Jung Jiménez, PGY2 Time Spent with Patient Time attestation: Total time spent providing and/or coordinating discharge services: Time spent: Greater than 30 minutes Exam Vital Signs Temp Pulse Resp BP Pulse Ox O2 Del Method O2 Flow Rate 96.6 F L 84 29 H 122/79 99 Oxy Mask 5 06/05/25 16:00 06/05/25 16:00 06/05/25 16:00 06/05/25 16:00 06/05/25 16:00 06/05/25 16:00 06/05/25 16:00 Narrative Exam General: Awake. Lethargic HEENT: Normocephalic, atraumatic, mucous membranes moist. Heart: Regular rate and rhythm, no murmurs. Lungs: Clear to auscultation with no wheezing or crackles. Abdomen: Soft, nondistended, nontender, positive bowel sounds. ?No guarding or rebound tenderness. Neurologic: Alert and oriented x2, no gross neurological deficit, and patient able to move all 4 extremities. Extremities: No edema. Skin: No rash or ecchymoses. Discharge Plan Plan Patient Disposition: Xfer [facility]) Patient condition on transfer: Stable Care Plan Goals: -Follow-up with PCP within 1 week of discharge. If you do not have appointment, [facility]. Call [phone] to make an appointment. -Discharging with hospice to [place] after discussing patients condition with the family -Recommended to stop all the medications as of now -Continue pleasure feeds for now -Recommend to take aspiration precautions -Return to ED if symptoms persist or return Prescriptions/Referrals Prescriptions/Med Rec: Discontinued clopidogrel 75 mg tablet 75 mg PO QDAY lisinopril 5 mg tablet 5 mg PO QDAY bupropion HCl 100 mg tablet sustained-release 12 hr 100 mg PO QDAY tramadol 75 mg tablet 75 mg PO Q6H PRN (Reason: pain) timolol maleate 0.5 % drops 1 p OPHTHALMIC (EYE) Q12H fluoxetine 40 mg capsule 40 mg PO QDAY levetiracetam 500 mg tablet 500 mg PO Q12H mirtazapine 7.5 mg tablet 7.5 mg PO QDAY pravastatin 40 mg tablet 40 mg PO QDAY latanoprost 0.005 % drops 1 drp OPHTHALMIC (EYE) QDAY metformin 1,000 mg tablet 1,000 mg PO BID ondansetron 4 mg tablet,disintegrating 4 mg PO Q6H PRN (Reason: nausea and vomiting) Referrals: Veronique Maciel MD [Primary Care Provider] Patient/Caregiver Discharge Instructions Print Language: Citizen [place] Stand Alone Forms: [facility] Award Info., Patient Portal Info Letter Discharge Order Discharge Orders: Discharge (Routine); Ordered 06/05/25 Ordered By: Mahad Jiménez Quality Discharge Quality Measures VTE prophylaxis MD Attestestation MD Attestation I have examined the patient, reviewed labs and imaging findings, discussed the case with the resident(s), and reviewed entered orders. I agree with the plan of care as outlined in this note. Time Spent: [address] Jung MD
--- NOTE | 2025-06-05 18:06 | PC.NURSE ---
Patients coccyx/sacrum is intact and reddened, gateway and family aware. Picture taken and placed in patients chart.
== END 2025-06-05 17:55 | disposition skilled nursing facility (03) | DRG 871 ==
LOC: SERX 17:45 → SERHOLD 18:43 → S2NX 20:31
PROVIDERS: Student in an Organized Health Care Education/Training Program; Admitting Provider Internal Medicine; Emergency Provider Emergency Medicine; PCP Hospitalist; Visit Provider Student in an Organized Health Care Education/Training Program
DX: A41.51 Sepsis due to Escherichia coli [E. coli] (principal); G93.41 Metabolic encephalopathy; I21.A1 Myocardial infarction type 2; I50.23 Acute on chronic systolic (congestive) heart failure; J18.9 Pneumonia, unspecified organism; N39.0 Urinary tract infection, site not specified; E87.20 Acidosis, unspecified; E87.0 Hyperosmolality and hypernatremia; E46 Unspecified protein-calorie malnutrition; E87.1 Hypo-osmolality and hyponatremia; Z68.1 Body mass index [BMI] 19.9 or less, adult; I11.0 Hypertensive heart disease with heart failure; F32.A Depression, unspecified; E78.5 Hyperlipidemia, unspecified; Z86.73 Personal history of transient ischemic attack (TIA), and cerebral infarction without residual deficits; I25.10 Atherosclerotic heart disease of native coronary artery without angina pectoris; E11.9 Type 2 diabetes mellitus without complications; F03.90 Unspecified dementia, unspecified severity, without behavioral disturbance, psychotic disturbance, mood disturbance, and anxiety; E83.52 Hypercalcemia; E86.0 Dehydration; E87.6 Hypokalemia; E87.8 Other disorders of electrolyte and fluid balance, not elsewhere classified; I48.91 Unspecified atrial fibrillation; R13.10 Dysphagia, unspecified; R62.7 Adult failure to thrive; G93.89 Other specified disorders of brain; R92.30 Dense breasts, unspecified; Z51.5 Encounter for palliative care; Z66 Do not resuscitate; Z79.02 Long term (current) use of antithrombotics/antiplatelets; Z79.4 Long term (current) use of insulin; Z79.84 Long term (current) use of oral hypoglycemic drugs; Z96.643 Presence of artificial hip joint, bilateral; Z99.3 Dependence on wheelchair
CPT/HCPCS: 36415; 36600; 51701; 70450; 70496; 70498; 70551; 71045; 80051; 80053; 80061; 80069; 80307; 80320; 81001; 82306; 82803; 83036; 83605; 83735; 83880; 83970; 84100; 84295; 84443; 84484; 85025; 85610; 85730; 87040; 87077; 87081; 87086; 87186; 87635; 92526; 92610; 93005; 93306; 96365; 96366; 97163; 99285; A4649; J0131; J0456; J0696; J1644; J1815; J1953; J2270; J3411; J3475; J3480; J3490; J7030; J7050; J7070; J7120; J7999; Q9967; A9270; G0480; J1836